=== PATIENT | female | born 1935 | race American Indian/Alaskan Native ===

== ENCOUNTER 2016-11-16 16:51 | Observation (INO) | payer MEDICARE ==
[2016-11-16 18:33] LABS: HEMATOCRIT 38.6 % (34.0-47.0); MEAN CELL VOLUME 91.2 fL (81.0-99.0); MEAN CORPUSCULAR HEMOGLOBIN 29.9 pg (27.0-31.0); MEAN CORPUSCULAR HGB CONC 32.8 g/dL (33.0-37.0); MEAN PLATELET VOLUME 7.7 fL (7.2-11.7); RED CELL DISTRIBUTION WIDTH 13.4 % (11.5-14.5); WHITE BLOOD COUNT 9.2 K/uL (4.8-10.8)
[2016-11-16 18:42] LABS: CHLORIDE 96 mmol/L (98-107); SODIUM 137 mmol/L (132-148)
[2016-11-16 18:44] LABS: GFR AFRICAN-AMERICAN > 60
[2016-11-16 18:45] LABS: ALB/GLOB RATIO 1.3 (1.0-2.1); ALKALINE PHOSPHATASE 84 U/L (38-126); ALT/SGPT 17 U/L (9-52); AST/SGOT 26 U/L (14-36); BILIRUBIN,TOTAL 0.8 mg/dL (0.2-1.3); BLOOD UREA NITROGEN 13 mg/dL (7-17); CARBON DIOXIDE 30 mmol/L (22-30); GLUCOSE,RANDOM 116 mg/dL (65-105); TOTAL PROTEIN 6.5 g/dL (6.3-8.3)
--- NOTE | 2016-11-16 18:52 | C.PDOC ---
History Of Present Illness 80 y/o female, history of HTN, hyperlipidemia, arthritis, presents to ED with c/ o chest pressure that started this morning. Patient saw PMD today, who noticed increased leg swelling. Patient c/o some difficulty breathing. Patient currently lives in a [facility] and states she cannot lie flat "because of her asthma", noting that she uses 2 pillows when she sleeps. Patient reports radiation of pain to bilateral shoulders. Chest pressure described as dull. Denies headaches, dizziness, acute chest pain, palpitations, cough, SOB, abdominal pain, nausea, vomiting, constipation, hematuria. Patient notes leg swelling causes discomfort when walking. Last BM Monday. Time Seen by Provider: 11/16/16 18:12 Chief Complaint (Nursing): Chest Pain History Per: Patient History/Exam Limitations: no limitations Onset/Duration Of Symptoms: Hrs Current Symptoms Are (Timing): Still Present Associated Symptoms: denies: Nausea, Dyspnea, Diaphoresis Exacerbating Factors: Exertion Recent travel outside of the [place]: No Past Medical History Reviewed: Historical Data, Nursing Documentation, Vital Signs Vital Signs: Last Vital Signs Temp 98.8 F 11/16/16 17:28 Pulse 68 11/16/16 17:28 Resp 20 11/16/16 17:51 BP 126/62 11/16/16 17:28 Pulse Ox 96 11/16/16 18:56 - Medical History PMH: Arthritis, Asthma, Back Problems, HTN, Hypercholesterolemia, Peripheral Edema - [facility] Procedures CLOSED ENDOSCOPIC BIOPSY OF LARGE INTESTINE (10/17/13) ENDOSC POLYPECTOMY OF LG INTEST (12/20/12) ESOPHAGOGASTRODUODENOSCOPY [EGD] W/CLOSED BIOPSY (10/17/13) PHYSICAL THERAPY NEC (05/04/15) Family History: States: Unknown Family Hx - Social History Hx Tobacco Use: No Hx Alcohol Use: No Hx Substance Use: No - Immunization History Hx Tetanus Toxoid Vaccination: No Hx Influenza Vaccination: No Hx Pneumococcal Vaccination: No Review Of Systems Except As Marked, All Systems Reviewed And Found Negative. Constitutional: Negative for: Fever, Chills Cardiovascular: Positive for: Edema (bilateral lower extremities), Other (chest pressure) Respiratory: Negative for: Cough, Shortness of Breath, Wheezing Gastrointestinal: Negative for: Nausea, Vomiting Genitourinary: Negative for: Dysuria, Hematuria Skin: Negative for: Rash Neurological: Negative for: Headache, Dizziness Physical Exam - Physical Exam Appears: Non-toxic, No Acute Distress Skin: Warm, Dry Head: Atraumatic, Normacephalic Chest: Symmetrical Cardiovascular: Rhythm Regular Respiratory: Rales, No Rhonchi, Wheezing (mild with prolonged expiration) Gastrointestinal/Abdominal: Soft, No Tenderness, No Guarding, No Rebound Back: Normal Inspection Extremity: Normal ROM, Pedal Edema (+1 pitting edema bilateral lower extremities ), Capillary Refill (< 2 sec. ) Neurological/Psych: Oriented x3, Normal Speech, Normal Cognition ED Course And Treatment - Laboratory Results Result Diagrams: 11/16/16 18:30 11/16/16 18:30 Lab Interpretation: No Acute Changes ECG: Interpreted By Me ECG Rhythm: Sinus Rhythm (with right axis, Q waves V2-3) ECG Interpretation: Abnormal O2 Sat by Pulse Oximetry: 96 Pulse Ox Interpretation: Normal - Radiology CXR: Interpreted by Me CXR Interpretation: Yes: No Acute Disease Progress Note: EKG, CxR, bloodwork ordered. Reevaluation Time: 20:41 Reassessment Condition: Unchanged (but patient going to the bathroom frequently after taking Lasix 20mg po at home earlier.) - Physician Consult Information Time Consulting Physician Contacted: 20:42 Physician Contacted: Rita Vera Outcome Of Conversation: He knows the patient well and will admit for chest pain and peripheral edema. Disposition - Disposition Disposition: HOSPITALIZED Disposition Time: 20:43 Condition: STABLE - POA Present On Arrival: None - Clinical Impression Clinical Impression: Chest pain, Peripheral edema - Scribe Statement The provider has reviewed the documentation as recorded by the Anirudh Riley Provider Scribe Attestation: All medical record entries made by the Sharonibemily were at my direction and personally dictated by me. I have reviewed the chart and agree that the record accurately reflects my personal performance of the history, physical exam, medical decision making, and the department course for this patient. I have also personally directed, reviewed, and agree with the discharge instructions and disposition.
[2016-11-16] MEDS ORDERED: OXYCODONE HCL 15 MG PO PRN (21:33)
[2016-11-16] MEDS ORDERED: oxyCODONE 5 mg Immediate Release Tab PO PRN (21:48)
[2016-11-16] MEDS ORDERED: Home Med 1 UNIT (Simvastatin [Simvastatin] 10 MG) PO SCH (22:00)
[2016-11-16] MEDS ORDERED: Rosuvastatin Calcium 2.5 mg Tab PO SCH (22:00)
[2016-11-16] MEDS: Rosuvastatin Calcium 2.5 mg Tab PO SCH (22:51)
--- NOTE | 2016-11-17 09:25 | CP.PCM.PN ---
Subjective - Date & Time of Evaluation Date of Evaluation: 11/17/16 Time of Evaluation: 07:10 - Subjective Subjective: Medicine Note- Dr. Vera's service Patient was seen and examined at bedside. Patient reports she was in sent in by her PMD, Dr. Vera, because she was complaining of chest pressure and increased leg swelling. She says the leg swelling occurs intermittently and has been on going for several months. She says the chest pressure started in October, she associates it with the time her windows in the senior citizen home she lives in were replaced. She noticed she has been needing her asthma machine more recently due to wheezing. She says she currently doesn't have chest pain at the moment, no complaints. Objective - Vital Signs/Intake and Output Vital Signs (last 24 hours): Temp Pulse Resp BP Pulse Ox 98.6 F 71 20 139/73 95 11/17/16 08:50 11/17/16 08:50 11/17/16 08:50 11/17/16 08:50 11/17/16 08:50 Intake and Output: 11/17/16 11/17/16 06:59 18:59 Intake Total 240 Balance 240 - Medications Medications: Current Medications Amlodipine Besylate (Norvasc) 10 mg PO DAILY [facility] Aspirin (Ecotrin) 81 mg PO DAILY [facility] Clopidogrel Bisulfate (Plavix) 75 mg PO DAILY [facility] Enoxaparin Sodium (Lovenox) 40 mg SC DAILY [facility] Gabapentin (Neurontin) 300 mg PO TID [facility] Losartan Potassium (Cozaar) 100 mg PO DAILY [facility] Oxycodone HCl (Oxycodone Immediate Release Tab) 15 mg PO Q6 PRN PRN Reason: Pain, severe (8-10) Last Admin: 11/16/16 21:00 Dose: 15 mg Pantoprazole Sodium (Protonix Ec Tab) 40 mg PO DAILY [facility] Prednisone (Prednisone Tab) 5 mg PO DAILY [facility] Rosuvastatin Calcium (Crestor) 2.5 mg PO HS [facility] Last Admin: 11/16/16 22:51 Dose: 2.5 mg - Constitutional Appears: Non-toxic, No Acute Distress - Head Exam Head Exam: ATRAUMATIC, NORMAL INSPECTION, NORMOCEPHALIC - Eye Exam Pupil Exam: NORMAL ACCOMODATION, PERRL - ENT Exam ENT Exam: Mucous Membranes Moist - Respiratory Exam Respiratory Exam: Clear to Ausculation Bilateral, NORMAL BREATHING PATTERN. absent: Rales, Rhonchi, Wheezes - Cardiovascular Exam Cardiovascular Exam: REGULAR RHYTHM, +S1, +S2 - GI/Abdominal Exam GI & Abdominal Exam: Soft, Tenderness, Normal Bowel Sounds. absent: Diminished Bowel Sounds, Hernia, Hyperactive Bowel Sounds, Hypoactive Bowel Sounds - Extremities Exam Extremities Exam: Normal Capillary Refill, Normal Inspection - Neurological Exam Neurological Exam: Alert, Awake, Oriented x3 - Psychiatric Exam Psychiatric exam: Normal Affect, Normal Mood - Skin Skin Exam: Dry, Intact, Normal Color, Warm Assessment and Plan - Assessment and Plan (Free Text) Assessment: Chest pain Consult Cardio- Dr. 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
[2016-11-17] MEDS: Enoxaparin 40 mg Syringe SC SCH (09:39)
[2016-11-17] MEDS ORDERED: Pantoprazole 40 mg EC Tab PO SCH (10:00)
--- NOTE | 2016-11-17 11:20 | RAD ---
HISTORY: short of breath COMPARISON: Chest x-ray image performed 07/13/11 TECHNIQUE: Chest PA and lateral FINDINGS: LUNGS: No focal consolidation. Please note that chest x-ray has limited sensitivity for the detection of pulmonary masses. PLEURA: No significant pleural effusion identified. No definite pneumothorax . CARDIOVASCULAR: Heart size appears within normal limits. Atherosclerotic calcifications of the aorta. OSSEOUS STRUCTURES: Degenerative changes of the spine. VISUALIZED UPPER ABDOMEN: Unremarkable. OTHER FINDINGS: None. IMPRESSION: No focal consolidation, significant pleural effusion, or definite pneumothorax identified.
--- NOTE | 2016-11-17 12:53 | CARD ---
APPROVED REPORT EXAM: Two-dimensional and M-mode echocardiogram with Doppler and color Doppler. Other Information Quality : AverageRhythm : NSR INDICATION Dizziness and Vertigo Chest Pain Syncope peripheral edema RISK FACTORS Hypertension Hyperlipidemia M-Mode DIMENSIONS RVDd1.27 (2.1-3.2cm)Left Atrium (MM)3.81 (2.5-4.0cm) IVSd0.75 (0.7-1.1cm)Aortic Root2.80 (2.2-3.7cm) LVDd4.85 (4.0-5.6cm)Aortic Cusp Exc.1.72 (1.5-2.0cm) PWd1.04 (0.7-1.1cm)FS (%) 49 % LVDs2.47 (2.0-3.8cm)LVEF (%)80 (>50%) Mitral Valve MV E Sbtgoqzi39.5cm/sMV A Lxvvucdg088.6cm/sE/A ratio0.8 TDI E/Lateral E'0.0E/Medial E'0.0 Tricuspid Valve TR Peak Wmrcxryr474xx/sTR Peak Gr.[id number] LEFT VENTRICLE The left ventricle is normal size. There is normal left ventricular wall thickness. The left ventricular function is normal. The left ventricular ejection fraction is within the normal range. There is normal LV segmental wall motion. The left ventricular diastolic function is normal. Transmitral Doppler flow pattern is Grade I-abnormal relaxation pattern. No left ventricle thrombus noted on this study. There is no ventricular septal defect visualized. There is no left ventricular aneurysm. There is no mass noted in the left ventricle. RIGHT VENTRICLE The right ventricle is normal size. There is normal right ventricular wall thickness. The right ventricular systolic function is normal. ATRIA The left atrium size is normal. The right atrium size is normal. AORTIC VALVE The aortic valve is mildly thickened but opens well. No aortic regurgitation is present. There is no aortic valvular stenosis. There is no aortic valvular vegetation. MITRAL VALVE The mitral valve is normal in structure. There is no evidence of mitral valve prolapse. There is no mitral valve stenosis. There is no mitral valve regurgitation noted. TRICUSPID VALVE The tricuspid valve is normal in structure. There is trace to mild tricuspid regurgitation. PULMONIC VALVE The pulmonary valve is normal in structure. There is no pulmonic valvular regurgitation. GREAT VESSELS The aortic root is normal in size. The ascending aorta is normal in size. The pulmonary artery is normal. The IVC is normal in size and collapses >50% with inspiration. PERICARDIAL EFFUSION There is no pericardial effusion. <Conclusion> The left ventricular diastolic function is normal. Transmitral Doppler flow pattern is Grade I-abnormal relaxation pattern. There is trace to mild tricuspid regurgitation.
--- NOTE | 2016-11-17 12:57 | CARD ---
APPROVED REPORT EKG Measurement Heart [id number] TX 144P-10 [id number] <Conclusion> Normal sinus rhythm Rightward axis Possible Anterior infarct, age undetermined Abnormal ECG
[2016-11-17] MEDS: Albuterol HFA 90 mcg/actuation (8 g) INH PRN ×2 (16:45→19:15)
--- NOTE | 2016-11-17 18:38 | CP.PCM.CON ---
History of Present Illness - History of Present Illness History of Present Illness: Patient seen and evaluated Admitted with Chest pain and dyspnea with pedal edema Trops negative For stress test in am NPO after MN except meds Past Patient History - Infectious Disease Hx of Infectious Diseases: None - Past Medical History & Family History Past Medical History?: Yes - Past Social History Smoking Status: Never Smoked - CARDIAC Hx Cardiac Disorders: Yes Hx Hypercholesterolemia: Yes Hx Hypertension: Yes - PULMONARY Hx Respiratory Disorders: Yes Hx Asthma: Yes - NEUROLOGICAL Hx Neurological Disorder: No - HEENT Hx HEENT Problems: No - RENAL Hx Chronic Kidney Disease: No - ENDOCRINE/METABOLIC Hx Endocrine Disorders: No - HEMATOLOGICAL/ONCOLOGICAL Hx Blood Disorders: No - INTEGUMENTARY Hx Dermatological Problems: No - MUSCULOSKELETAL/RHEUMATOLOGICAL Hx Arthritis: Yes - GASTROINTESTINAL Hx Gastrointestinal Disorders: No - GENITOURINARY/GYNECOLOGICAL Hx Genitourinary Disorders: No - PSYCHIATRIC Hx Substance Use: No - SURGICAL HISTORY Hx Surgeries: Yes Hx Hysterectomy: Yes Hx Orthopedic Surgery: Yes (CERVICAL NECK) Other/Comment: HYSERECTOMY - ANESTHESIA Hx Anesthesia: Yes Hx Anesthesia Reactions: No Hx Malignant Hyperthermia: No Meds Allergies/Adverse Reactions: Allergies Allergy/AdvReac Type Severity Reaction Status Date / Time aspirin [From Jose Aspirin] Allergy Verified 11/16/16 17:37 - Medications Medications: Current Medications Albuterol (Ventolin Hfa 90 Mcg/Actuation (8 G)) 1 puff INH RQ4 PRN PRN Reason: Shortness of Breath Last Admin: 11/17/16 16:45 Dose: 1 puff Amlodipine Besylate (Norvasc) 10 mg PO DAILY [facility] Last Admin: 11/17/16 09:41 Dose: 10 mg Aspirin (Ecotrin) 81 mg PO DAILY [facility] Last Admin: 11/17/16 09:40 Dose: 81 mg Clopidogrel Bisulfate (Plavix) 75 mg PO DAILY [facility] Last Admin: 11/17/16 09:40 Dose: 75 mg Enoxaparin Sodium (Lovenox) 40 mg SC DAILY [facility] Last Admin: 11/17/16 09:39 Dose: 40 mg Famotidine (Pepcid) 20 mg PO DAILY [facility] Last Admin: 11/17/16 11:27 Dose: 20 mg Gabapentin (Neurontin) 300 mg PO TID [facility] Last Admin: 11/17/16 13:53 Dose: 300 mg Losartan Potassium (Cozaar) 100 mg PO DAILY [facility] Last Admin: 04/13/17 09:41 Dose: 100 mg Oxycodone HCl (Oxycodone Immediate Release Tab) 15 mg PO Q6 PRN PRN Reason: Pain, severe (8-10) Last Admin: 11/16/16 21:00 Dose: 15 mg Prednisone (Prednisone Tab) 5 mg PO DAILY [facility] Last Admin: 11/17/16 09:40 Dose: 5 mg Rosuvastatin Calcium (Crestor) 2.5 mg PO HS [facility] Last Admin: 11/16/16 22:51 Dose: 2.5 mg Results - Vital Signs Recent Vital Signs: Last Vital Signs Temp 98.4 F 11/17/16 15:51 Pulse 60 11/17/16 17:00 Resp 20 11/17/16 15:51 BP 129/74 11/17/16 15:51 Pulse Ox 99 11/17/16 15:51 - Labs Result Diagrams: 11/16/16 18:30 11/16/16 18:30 Labs: Laboratory Results - last 24 hr 11/17/16 11/17/16 02:50 11:56 Total Creatine Kinase 139 H 147 H CK-MB (Mass) 0.97 1.31 Troponin I, Quant < 0.0120 < 0.0120
[2016-11-17] MEDS: Rosuvastatin Calcium 2.5 mg Tab PO SCH (22:14)
[2016-11-18 06:27] LABS: BASO % 0.6 % (0.0-2.0); EOS # 0.1 K/uL (0.0-0.7); EOS % 1.3 % (0.0-4.0); HEMATOCRIT 36.5 % (34.0-47.0); LYMPH # 1.9 K/uL (1.0-4.3); LYMPH % 26.5 % (20.0-40.0); MEAN CELL VOLUME 91.9 fL (81.0-99.0); MEAN CORPUSCULAR HEMOGLOBIN 30.5 pg (27.0-31.0); MEAN CORPUSCULAR HGB CONC 33.2 g/dL (33.0-37.0); MEAN PLATELET VOLUME 8.1 fL (7.2-11.7); MONO # 0.8 K/uL (0.0-0.8); MONO % 10.9 % (0.0-10.0); NRBC % 0.1 % (0.0-2.0); RED CELL DISTRIBUTION WIDTH 13.2 % (11.5-14.5); WHITE BLOOD COUNT 7.2 K/uL (4.8-10.8)
[2016-11-18 07:24] LABS: CHLORIDE 99 mmol/L (98-107); SODIUM 140 mmol/L (132-148)
[2016-11-18 07:25] LABS: POTASSIUM 4.4 mmol/L (3.6-5.2)
[2016-11-18 07:27] LABS: ALB/GLOB RATIO 1.3 (1.0-2.1); ALKALINE PHOSPHATASE 68 U/L (38-126); AST/SGOT 25 U/L (14-36); BILIRUBIN,TOTAL 0.9 mg/dL (0.2-1.3); BLOOD UREA NITROGEN 14 mg/dL (7-17); CARBON DIOXIDE 31 mmol/L (22-30); GFR AFRICAN-AMERICAN > 60
[2016-11-18 07:28] LABS: ALT/SGPT 18 U/L (9-52); CALCIUM 8.7 mg/dl (8.6-10.4); GLUCOSE,RANDOM 129 mg/dL (65-105)
[2016-11-18] MEDS: Enoxaparin 40 mg Syringe SC SCH (09:56)
[2016-11-18] MEDS: Albuterol HFA 90 mcg/actuation (8 g) INH PRN (10:29)
--- NOTE | 2016-11-18 10:54 | CP.PCM.PN ---
Subjective - Date & Time of Evaluation Date of Evaluation: 11/18/16 Time of Evaluation: 08:00 - Subjective Subjective: Medicine Progress Note- Dr. Vera's Service: Patient seen and examined at bedside this AM. Patient NPO for cath today. No acute events overnight reported overnight. Objective - Vital Signs/Intake and Output Vital Signs (last 24 hours): Temp Pulse Resp BP Pulse Ox 98.1 F 70 18 142/86 99 11/18/16 07:00 11/18/16 07:20 11/18/16 07:00 11/18/16 07:00 11/18/16 07:00 - Medications Medications: Current Medications Albuterol (Ventolin Hfa 90 Mcg/Actuation (8 G)) 1 puff INH RQ4 PRN PRN Reason: Shortness of Breath Last Admin: 11/18/16 10:29 Dose: 1 puff Amlodipine Besylate (Norvasc) 10 mg PO DAILY [facility] Last Admin: 11/18/16 09:56 Dose: 10 mg Aspirin (Ecotrin) 81 mg PO DAILY [facility] Last Admin: 11/18/16 09:56 Dose: 81 mg Clopidogrel Bisulfate (Plavix) 75 mg PO DAILY [facility] Last Admin: 11/18/16 09:56 Dose: 75 mg Enoxaparin Sodium (Lovenox) 40 mg SC DAILY [facility] Last Admin: 11/18/16 09:56 Dose: 40 mg Famotidine (Pepcid) 20 mg PO DAILY [facility] Last Admin: 11/18/16 09:55 Dose: 20 mg Gabapentin (Neurontin) 300 mg PO TID [facility] Last Admin: 11/18/16 09:56 Dose: 300 mg Losartan Potassium (Cozaar) 100 mg PO DAILY [facility] Last Admin: 11/18/16 09:55 Dose: 100 mg Oxycodone HCl (Oxycodone Immediate Release Tab) 15 mg PO Q6 PRN PRN Reason: Pain, severe (8-10) Last Admin: 11/16/16 21:00 Dose: 15 mg Prednisone (Prednisone Tab) 5 mg PO DAILY [facility] Last Admin: 11/18/16 09:56 Dose: 5 mg Rosuvastatin Calcium (Crestor) 2.5 mg PO HS [facility] Last Admin: 11/17/16 22:14 Dose: 2.5 mg - Labs Labs: 11/18/16 06:14 11/18/16 06:14 - Constitutional Appears: No Acute Distress - Head Exam Head Exam: NORMAL INSPECTION, NORMOCEPHALIC - Eye Exam Eye Exam: EOMI, Normal appearance - ENT Exam ENT Exam: Mucous Membranes Moist - Neck Exam Neck Exam: Full ROM, Normal Inspection - Respiratory Exam Respiratory Exam: Clear to Ausculation Bilateral, NORMAL BREATHING PATTERN - Cardiovascular Exam Cardiovascular Exam: REGULAR RHYTHM, +S1, +S2 - GI/Abdominal Exam GI & Abdominal Exam: Soft. absent: Distended, Tenderness - Extremities Exam Extremities Exam: Calf Tenderness, Pedal Edema - Neurological Exam Neurological Exam: Alert, Awake, Oriented x3 - Psychiatric Exam Psychiatric exam: Normal Affect, Normal Mood - Skin Skin Exam: Normal Color, Warm Assessment and Plan - Assessment and Plan (Free Text) Assessment: Chest pain Consult Cardio- Dr. 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 Prophylactic Measure Lovenox 40mg SC Daily Pepcid 20mg PO BID Management as per Dr. Vera.
--- NOTE | 2016-11-18 12:20 | VASCLAB ---
PROCEDURE: Lower Extremity Venous Duplex Exam. HISTORY: increased swelling DVT suspected PRIORS: None. TECHNIQUE: Bilateral common femoral, femoral, popliteal and posterior tibial, peroneal and great saphenous veins were evaluated. Flow was assessed with color Doppler, compressibility, assessment of phasic flow and augmentation response. Report prepared by Xavier Porter, T FINDINGS: RIGHT: 1. Common Femoral Vein: 1.1. Compressibility - Fully compressible: Thrombus - None : Flow - Phasic: Augmentation -Normal: Reflux - None. 2. Femoral Vein: 2.1. Compressibility - Fully compressible: Thrombus - None : Flow - Phasic: Augmentation -Normal: Reflux - None. 3. Popliteal Vein: 3.1. Compressibility - Fully compressible: Thrombus - None : Flow - Phasic: Augmentation -Normal: Reflux - None. 4. Posterior Tibial Vein: 4.1. Compressibility - Fully compressible: Thrombus - None: Flow - Phasic: Augmentation -Normal: Reflux - None. 5. Peroneal Vein: 5.1. Compressibility - Fully compressible: Thrombus - None: Flow - Phasic: Augmentation -Normal: Reflux - None. 6. Great Saphenous Vein: 6.1. Compressibility - Fully compressible: Thrombus - None: Flow - Phasic: Augmentation - Normal: Reflux - None. LEFT: 1. Common Femoral Vein: 1.1. Compressibility - Fully compressible: Thrombus - None: Flow - Phasic: Augmentation -Normal: Reflux - None. 2. Femoral Vein: 2.1. Compressibility - Fully compressible: Thrombus - None: Flow - Phasic: Augmentation -Normal: Reflux - None. 3. Popliteal Vein: 3.1. Compressibility - Fully compressible: Thrombus - None : Flow - Phasic: Augmentation -Normal: Reflux - None. 4. Posterior Tibial Vein: 4.1. Compressibility - Fully compressible: Thrombus - None: Flow - Phasic: Augmentation -Normal: Reflux - None. 5. Peroneal Vein: 5.1. Compressibility - Fully compressible: Thrombus - None: Flow - Phasic: Augmentation -Normal: Reflux - None. 6. Great Saphenous Vein: 6.1. Compressibility - Fully compressible: Thrombus - None: Flow - Phasic: Augmentation - Normal: Reflux - None. OTHER FINDINGS: Right: None significant. Left: None significant. IMPRESSION: Right: No evidence of deep or superficial vein thrombosis of the right lower extremity. Left: No evidence of deep or superficial vein thrombosis of the left lower extremity.
[2016-11-18 15:52] VITALS: RESP 20
--- NOTE | 2016-11-18 17:16 | CARD ---
APPROVED REPORT Protocol: PHARMACOLOGICAL STRESS Test Type: LEXISCASN Test Indications: CHEST PAIN Medications: LIST SCAN Medical History: CHEST PAIN Target HR: 141 bpm Resting ECG: PRWP Resting Heart Rate: 62 bpm Resting Blood Pressure: 120/70mmHg submaximum (85%): 120 bpm TEST SUMMARY [id number]/70.0. INFUSIONDOSE 100:310.00.01.063/.0. [id number]/60.0. PROCEDURE Pharmacologic stress testing was performed using 0.4mg per 5ml of regadenoson given intravenously over 7-10 seconds. POST EXERCISE Reason for Termination: LEXISCAN PROTOCOL Target HR: No Max HR: 63 bpm 58% of Maximum Predicted HR: 141 bpm Exercise duration: 00:31 min:sec, 0 Stage Exercise capacity: 1.0METs Max Blood Pressure: 130/60mmHg Chest Pain: No, none Angina index: 0 Arrhythmia: No, none ST Change: No, none Deviation: 0 mm INTERPRETATION Stress EKG Conclusion: NL LEXISCAN NUCLEAR PENDING EXAM: Myocardial Perfusion STRESS/REST Imaging Protocol Rest Spect myocardial perfusion imaging was performed in supine position 45 minutes following the injection of 32.9 mCi of Tc-99 Myoview. Gated Stress Spect was performed 45 minutes after intravenous 12.8 mCi Tc-99 Myoview injection. The images were gated to evaluate regional wall motion and calculate ventricular ejection fraction.Images were reconstructed using backfilter projection method in short horizontal and verticle long axis. Spect slices were generated. RESTING DATA EDV60.74pvMF1.40L/min ESV19.00mlMyocardial Waiq459.00g Av. Heart Rate57.00bpm EF68.00% STRESS DATA EDV65.53wuRA4.10L/min ESV15.00mlMyocardial Jlnb392.00g EF77.00% Regional WT score at stress:0.00 Regional WM score at stress:0.00 Summed WT score at stress:1.00 Av. Heart Rate62.00bpmSummed WM score at stress:0.00 LV Perf. Quant 17 Seg. SSS1.00 17 Seg. SRS0.00 17 Seg. SDS1.00 Stress Defect Extent (% LAD)0.00Rest Defect Extent (% LAD)0.00Rev. Defect Extent (% LAD)0.00 Stress Defect Extent (% LCX)8.80Rest Defect Extent (% LCX)0.00Rev. Defect Extent (% LCX)8.80 Stress Defect Extent (% RCA)0.00Rest Defect Extent (% RCA)0.00Rev. Defect Extent (% RCA)0.00 Stress Defect Extent (% KRYSTAL)1.50Rest Defect Extent (% KRYSTAL)0.00Rev. Defect Extent (% KRYSTAL)1.50 Other Information Quality:Good IMPRESSION Normal Myocardial Perfusion exercise stress study Left Ventricle LV Size/Shape: The left ventricle is normal size. LV Function:Left ventricle systolic function is normal. The Ejection Fraction is 60-65%. Conclusion 1. Normal Lexiscan nuclear stress test
--- NOTE | 2016-11-18 17:46 | CP.PCM.PN ---
Subjective - Date & Time of Evaluation Date of Evaluation: 11/18/16 Time of Evaluation: 17:45 - Subjective Subjective: Patient s/p stress test Stress test: Normal Cardiac point of view stable for discharge Objective - Vital Signs/Intake and Output Vital Signs (last 24 hours): Temp Pulse Resp BP Pulse Ox 98.0 F 66 20 128/68 99 11/18/16 15:51 11/18/16 15:51 11/18/16 15:51 11/18/16 15:51 11/18/16 15:51 - Medications Medications: Current Medications Albuterol (Ventolin Hfa 90 Mcg/Actuation (8 G)) 1 puff INH RQ4 PRN PRN Reason: Shortness of Breath Last Admin: 11/18/16 10:29 Dose: 1 puff Amlodipine Besylate (Norvasc) 10 mg PO DAILY [facility] Last Admin: 11/18/16 09:56 Dose: 10 mg Aspirin (Ecotrin) 81 mg PO DAILY [facility] Last Admin: 11/18/16 09:56 Dose: 81 mg Clopidogrel Bisulfate (Plavix) 75 mg PO DAILY [facility] Last Admin: 11/18/16 09:56 Dose: 75 mg Enoxaparin Sodium (Lovenox) 40 mg SC DAILY [facility] Last Admin: 11/18/16 09:56 Dose: 40 mg Famotidine (Pepcid) 20 mg PO DAILY [facility] Last Admin: 11/18/16 09:55 Dose: 20 mg Gabapentin (Neurontin) 300 mg PO TID [facility] Last Admin: 11/18/16 13:26 Dose: 300 mg Losartan Potassium (Cozaar) 100 mg PO DAILY [facility] Last Admin: 11/18/16 09:55 Dose: 100 mg Oxycodone HCl (Oxycodone Immediate Release Tab) 15 mg PO Q6 PRN PRN Reason: Pain, severe (8-10) Last Admin: 11/16/16 21:00 Dose: 15 mg Prednisone (Prednisone Tab) 5 mg PO DAILY [facility] Last Admin: 11/18/16 09:56 Dose: 5 mg Rosuvastatin Calcium (Crestor) 2.5 mg PO HS [facility] Last Admin: 11/17/16 22:14 Dose: 2.5 mg - Labs Labs: 11/18/16 06:14 11/18/16 06:14
[2016-11-18] MEDS: Albuterol-Ipratrop 3 mg / 0.5 (3 ml) UD INH SCH (20:06)
[2016-11-18] MEDS: Rosuvastatin Calcium 2.5 mg Tab PO SCH (21:48)
[2016-11-19] MEDS: Albuterol-Ipratrop 3 mg / 0.5 (3 ml) UD INH SCH ×2 (01:38→07:53)
[2016-11-19 07:07] LABS: CHLORIDE 98 mmol/L (98-107)
[2016-11-19 07:08] LABS: POTASSIUM 3.7 mmol/L (3.6-5.2); SODIUM 136 mmol/L (132-148)
[2016-11-19 07:10] LABS: AST/SGOT 23 U/L (14-36); BILIRUBIN,TOTAL 0.7 mg/dL (0.2-1.3); BLOOD UREA NITROGEN 15 mg/dL (7-17); CARBON DIOXIDE 31 mmol/L (22-30); GFR AFRICAN-AMERICAN > 60; TOTAL PROTEIN 5.9 g/dL (6.3-8.3)
[2016-11-19 07:11] LABS: ALKALINE PHOSPHATASE 75 U/L (38-126); ALT/SGPT 21 U/L (9-52); CALCIUM 8.6 mg/dl (8.6-10.4); GLUCOSE,RANDOM 109 mg/dL (65-105)
[2016-11-19 07:14] LABS: BASO # 0.1 K/uL (0.0-0.2); BASO % 0.6 % (0.0-2.0); EOS # 0.1 K/uL (0.0-0.7); EOS % 1.3 % (0.0-4.0); HEMATOCRIT 36.8 % (34.0-47.0); LYMPH # 2.2 K/uL (1.0-4.3); LYMPH % 22.6 % (20.0-40.0); MEAN CELL VOLUME 92.4 fL (81.0-99.0); MEAN CORPUSCULAR HEMOGLOBIN 30.8 pg (27.0-31.0); MEAN CORPUSCULAR HGB CONC 33.3 g/dL (33.0-37.0); MEAN PLATELET VOLUME 8.3 fL (7.2-11.7); MONO # 0.9 K/uL (0.0-0.8); RED CELL DISTRIBUTION WIDTH 13.1 % (11.5-14.5); WHITE BLOOD COUNT 9.6 K/uL (4.8-10.8)
[2016-11-19 07:19] LABS: ALB/GLOB RATIO 1.4 (1.0-2.1)
[2016-11-19 08:35] VITALS: BP 154/71; PULSE 67; TEMP 98; O2SAT 96
[2016-11-19] MEDS: Enoxaparin 40 mg Syringe SC SCH (10:14)
--- NOTE | 2016-11-19 11:15 | CP.PCM.PN ---
Subjective - Date & Time of Evaluation Date of Evaluation: 11/19/16 Time of Evaluation: 11:14 - Subjective Subjective: Alert, orientedx3, NAD. Objective - Vital Signs/Intake and Output Vital Signs (last 24 hours): Temp Pulse Resp BP Pulse Ox 98.0 F 67 20 154/71 H 96 11/19/16 08:31 11/19/16 08:31 11/19/16 08:31 11/19/16 08:31 11/19/16 08:31 Intake and Output: 11/19/16 11/19/16 06:59 18:59 Intake Total 150 Balance 150 - Medications Medications: Current Medications Albuterol (Ventolin Hfa 90 Mcg/Actuation (8 G)) 1 puff INH RQ4 PRN PRN Reason: Shortness of Breath Last Admin: 11/18/16 10:29 Dose: 1 puff Albuterol/Ipratropium (Duoneb 3 Mg/0.5 Mg (3 Ml) Ud) 3 ml INH RQ6 [facility] Last Admin: 11/19/16 07:53 Dose: 3 ml Amlodipine Besylate (Norvasc) 10 mg PO DAILY [facility] Last Admin: 11/19/16 10:14 Dose: 10 mg Aspirin (Ecotrin) 81 mg PO DAILY [facility] Last Admin: 11/19/16 10:13 Dose: 81 mg Clopidogrel Bisulfate (Plavix) 75 mg PO DAILY [facility] Last Admin: 11/19/16 10:14 Dose: 75 mg Enoxaparin Sodium (Lovenox) 40 mg SC DAILY [facility] Last Admin: 11/19/16 10:14 Dose: 40 mg Famotidine (Pepcid) 20 mg PO DAILY [facility] Last Admin: 11/19/16 10:14 Dose: 20 mg Gabapentin (Neurontin) 300 mg PO TID [facility] Last Admin: 11/19/16 10:14 Dose: 300 mg Lactulose (Enulose) 20 gm PO DAILY [facility] Last Admin: 11/19/16 10:13 Dose: Not Given Losartan Potassium (Cozaar) 100 mg PO DAILY [facility] Last Admin: 11/19/16 10:13 Dose: 100 mg Oxycodone HCl (Oxycodone Immediate Release Tab) 15 mg PO Q6 PRN PRN Reason: Pain, severe (8-10) Last Admin: 11/16/16 21:00 Dose: 15 mg Prednisone (Prednisone Tab) 5 mg PO DAILY [facility] Last Admin: 11/19/16 10:14 Dose: 5 mg Rosuvastatin Calcium (Crestor) 2.5 mg PO HS [facility] Last Admin: 11/18/16 21:48 Dose: 2.5 mg - Labs Labs: 11/19/16 06:28 11/19/16 06:28 Assessment and Plan - Assessment and Plan (Free Text) Assessment: Patient is seen and examined. No sob or chest pains, no acute distress. Discharged home today as per DR Vera. To follow up in the office in 1 week.
--- NOTE | 2016-11-21 07:15 | DS ---
A 80-year-old female admitted to the hospital with chief complaint of weakness, fatigue, tiredness, c hest pain. The patient placed on bedrest. Stress test negative. Echocardiogram negative. The dinah ent is being discharged to be followed as outpatient. The patient is being discharged today, feeling better . Rita Reeves MD cc: [id number] TT: 11/20/2016 10:13:24 en
--- NOTE | 2016-12-26 08:45 | HP ---
The patient came to the hospital with chief complaint of abdominal pain, weakness, leg pain, dizzines s, passing out spell. The patient came to the hospital, advised admission. The patient has history of spinal stenosis/spinal surgery, hypertension. PHYSICAL EXAMINATION: GENERAL: The patient is awake, alert, oriented. VITAL SIGNS: Temperature 98, pulse 90. HEENT: Within normal limits. NECK: Supple. CHEST: Symmetrical, decreased air entry. HEART: Regular. ABDOMEN: ____. EXTREMITIES: No edema. The patient with syncope. The patient will get bedrest, supportive care. Rita Reeves MD cc: [id number] TT: 12/24/2016 08:26:27 tn
== END 2016-11-19 12:21 | disposition home or self-care (01) ==
LOC: C.ER 16:51 → C.9E 20:43 → C.6T 22:52
PROVIDERS: ADMIT Internal Medicine Pulmonary Disease; ATTEND Internal Medicine Pulmonary Disease
DX: R07.9 Chest pain, unspecified (principal); E78.00 Pure hypercholesterolemia, unspecified; I10 Essential (primary) hypertension; J45.909 Unspecified asthma, uncomplicated; G89.29 Other chronic pain; M54.2 Cervicalgia; M19.072 Primary osteoarthritis, left ankle and foot; M19.071 Primary osteoarthritis, right ankle and foot; M79.89 Other specified soft tissue disorders
CPT/HCPCS: 36415; 71020; 78452; 80053; 84484; 85025; 85027; 93005; 93017; 93306; 93970; 94640; 97116; 97162; 99285; A9502; G0378; G8978; G8979; G8980; J1650

== ENCOUNTER 2016-11-20 14:52 | Observation (INO) | payer MEDICARE ==
[2016-11-20 15:37] LABS: BASO # 0.1 K/uL (0.0-0.2); BASO % 0.6 % (0.0-2.0); EOS # 0.1 K/uL (0.0-0.7); HEMATOCRIT 36.2 % (34.0-47.0); LYMPH # 2.6 K/uL (1.0-4.3); LYMPH % 25.3 % (20.0-40.0); MEAN CELL VOLUME 93.1 fL (81.0-99.0); MEAN CORPUSCULAR HEMOGLOBIN 30.1 pg (27.0-31.0); MEAN CORPUSCULAR HGB CONC 32.3 g/dL (33.0-37.0); MONO # 1.2 K/uL (0.0-0.8); MONO % 11.6 % (0.0-10.0); RED CELL DISTRIBUTION WIDTH 13.3 % (11.5-14.5); WHITE BLOOD COUNT 10.2 K/uL (4.8-10.8)
[2016-11-20 15:41] LABS: CHLORIDE 99 mmol/L (98-107)
[2016-11-20 15:42] LABS: POTASSIUM 4.3 mmol/L (3.6-5.2); SODIUM 137 mmol/L (132-148)
[2016-11-20 15:44] LABS: ALB/GLOB RATIO 1.4 (1.0-2.1); AST/SGOT 23 U/L (14-36); BILIRUBIN,TOTAL 0.5 mg/dL (0.2-1.3); CARBON DIOXIDE 31 mmol/L (22-30); GFR AFRICAN-AMERICAN 58; TOTAL PROTEIN 5.9 g/dL (6.3-8.3)
[2016-11-20 15:45] LABS: ALKALINE PHOSPHATASE 76 U/L (38-126); ALT/SGPT 17 U/L (9-52); BLOOD UREA NITROGEN 20 mg/dL (7-17); GLUCOSE,RANDOM 93 mg/dL (65-105)
--- NOTE | 2016-11-20 16:28 | C.PDOC ---
History Of Present Illness Patient is a 80 y/o female that is brought to the ED by EMS for evaluation of syncopal episode at [facility] today. Patient states that she was standing outside of [facility], when she suddenly felt nauseous, sat down, and became unconscious. Of note, patient was recently admitted for edema, and was discharged home few days ago. Patient denies any injury, headache, dizziness, lightheadedness, chest pain, shortness of breath, or any other physical complaints at this time. Pt denies any history of syncope in the past. Time Seen by Provider: 11/20/16 14:59 Chief Complaint (Nursing): Syncope History Per: Patient History/Exam Limitations: no limitations Onset/Duration Of Symptoms: Sudden Onset Current Symptoms Are (Timing): Still Present Activity At Onset Of Symptoms: Standing Associated Symptoms Preceding Syncopal Episode: No Predromal Symptoms (Sudden Onset) Seizure Or Post-ictal Symptoms: None Fall Associated With With Symptoms: No Severity: None Pain Scale Rating Of: 0 Recent travel outside of the [place]: No Additional History Per: Patient Past Medical History Reviewed: Historical Data, Nursing Documentation, Vital Signs Vital Signs: Last Vital Signs Temp 98.0 F 11/22/16 08:52 Pulse 62 11/22/16 08:52 Resp 18 11/22/16 08:52 BP 156/78 H 11/22/16 08:52 Pulse Ox 100 11/22/16 08:52 - Medical History PMH: Arthritis, Asthma, Back Problems, HTN, Hypercholesterolemia, Peripheral Edema Denies: Chronic Kidney Disease - [facility] Procedures CLOSED ENDOSCOPIC BIOPSY OF LARGE INTESTINE (10/17/13) ENDOSC POLYPECTOMY OF LG INTEST (12/20/12) ESOPHAGOGASTRODUODENOSCOPY [EGD] W/CLOSED BIOPSY (10/17/13) PHYSICAL THERAPY NEC (05/04/15) Family History: States: Unknown Family Hx - Social History Hx Tobacco Use: No Hx Alcohol Use: No Hx Substance Use: No - Immunization History Hx Tetanus Toxoid Vaccination: No Hx Influenza Vaccination: No Hx Pneumococcal Vaccination: No Review Of Systems Except As Marked, All Systems Reviewed And Found Negative. Constitutional: Negative for: Fever, Chills Cardiovascular: Negative for: Chest Pain, Palpitations Respiratory: Negative for: Cough, Shortness of Breath Gastrointestinal: Negative for: Nausea, Vomiting, Abdominal Pain Neurological: Negative for: Weakness, Numbness, Headache, Dizziness Physical Exam - Physical Exam Appears: Non-toxic, No Acute Distress Skin: Normal Color, Warm, Dry Head: Atraumatic, Normacephalic Eye(s): bilateral: Normal Inspection, EOMI Neck: Normal ROM, Supple Chest: Symmetrical Cardiovascular: Rhythm Regular Respiratory: Normal Breath Sounds, No Rales, No Rhonchi, No Wheezing Gastrointestinal/Abdominal: Soft, No Tenderness Neurological/Psych: Oriented x3, Normal Speech, Normal Cognition ED Course And Treatment - Laboratory Results Result Diagrams: 11/22/16 06:11 11/22/16 06:11 ECG: Interpreted By Me, Viewed By Me ECG Rhythm: Sinus Rhythm ECG Interpretation: No Acute Changes Interpretation Of ECG: Minimal voltage criteria for LVH Rate From EC (bpm) O2 Sat by Pulse Oximetry: 100 (on RA) Pulse Ox Interpretation: Normal Progress Note: Labs, EKG ordered and reviewed. Medical Decision Making Medical Decision Making: Pt remained stable in the ED Bun/Creat elevated from 2 days ago IN view of hx CHF, and fluid over load last wk will need observation for elier hydration Discussed with dr Vera who agrees with plan Disposition - Disposition Disposition: HOME/ ROUTINE Disposition Time: 16:27 Condition: GOOD - Clinical Impression Clinical Impression: Syncope - Scribe Statement The provider has reviewed the documentation as recorded by the Anirudh Castro Provider Attestation: All medical record entries made by the Anirudh were at my direction and personally dictated by me. I have reviewed the chart and agree that the record accurately reflects my personal performance of the history, physical exam, medical decision making, and the department course for this patient. I have also personally directed, reviewed, and agree with the discharge instructions and disposition. Decision To Admit - Pt Status Changed To: Hospital Disposition Of: Observation - . Bed Request Type: Telemetry Admitting Physician: Rita Vera Patient Diagnosis: Syncope
[2016-11-20] MEDS ORDERED: Oxycodone/Acetaminophen 5/325 mg Tab PO STA (17:06)
[2016-11-20] MEDS ORDERED: Albuterol 0.083% Inhal Sol (2.5 mg/3 mL) UD INH STA (17:07)
[2016-11-20] MEDS ORDERED: Oxycodone/Acetaminophen 5/325 mg Tab ONE (17:10)
[2016-11-20] MEDS ORDERED: Albuterol 0.083% Inhal Sol (2.5 mg/3 mL) UD ONE (17:10)
[2016-11-20] MEDS ORDERED: Albuterol HFA 90 mcg/actuation (8 g) INH PRN (19:24)
[2016-11-20] MEDS ORDERED: OXYCODONE HCL 15 MG PO PRN (19:24)
[2016-11-20] MEDS: Dextrose 5%/0.45% NS 1,000 ML IV SCH (21:44)
[2016-11-20] MEDS ORDERED: Home Med 1 UNIT (Simvastatin [Simvastatin] 10 MG) PO SCH (22:00)
[2016-11-20] MEDS ORDERED: oxyCODONE 10 mg Immediate Release Tab PO PRN (22:09)
[2016-11-20] MEDS: Rosuvastatin Calcium 2.5 mg Tab PO SCH (22:45)
[2016-11-21] MEDS ORDERED: Albuterol-Ipratrop 3 mg / 0.5 (3 ml) UD INH STA (05:39)
[2016-11-21] MEDS ORDERED: Albuterol 0.083% Inhal Sol (2.5 mg/3 mL) UD ONE (05:41)
[2016-11-21 06:29] LABS: BASO % 0.6 % (0.0-2.0); EOS # 0.1 K/uL (0.0-0.7); EOS % 1.2 % (0.0-4.0); HEMATOCRIT 35.9 % (34.0-47.0); LYMPH # 2.6 K/uL (1.0-4.3); LYMPH % 33.1 % (20.0-40.0); MEAN CELL VOLUME 93.2 fL (81.0-99.0); MEAN CORPUSCULAR HEMOGLOBIN 30.3 pg (27.0-31.0); MEAN CORPUSCULAR HGB CONC 32.5 g/dL (33.0-37.0); MONO # 0.8 K/uL (0.0-0.8); MONO % 10.3 % (0.0-10.0); NRBC % 0.1 % (0.0-2.0); RED CELL DISTRIBUTION WIDTH 13.5 % (11.5-14.5); WHITE BLOOD COUNT 7.8 K/uL (4.8-10.8)
[2016-11-21 06:34] LABS: CHLORIDE 100 mmol/L (98-107); POTASSIUM 3.9 mmol/L (3.6-5.2); SODIUM 138 mmol/L (132-148)
[2016-11-21 06:36] LABS: ALKALINE PHOSPHATASE 67 U/L (38-126); AST/SGOT 20 U/L (14-36); CARBON DIOXIDE 30 mmol/L (22-30); GFR AFRICAN-AMERICAN > 60; TOTAL PROTEIN 5.6 g/dL (6.3-8.3)
[2016-11-21 06:37] LABS: ALT/SGPT 17 U/L (9-52); BLOOD UREA NITROGEN 15 mg/dL (7-17); CALCIUM 7.7 mg/dl (8.6-10.4); GLUCOSE,RANDOM 120 mg/dL (65-105)
[2016-11-21 06:48] LABS: ALB/GLOB RATIO 1.4 (1.0-2.1)
[2016-11-21] MEDS: Dextrose 5%/0.45% NS 1,000 ML IV SCH ×2 (08:13→20:45)
[2016-11-21] MEDS ORDERED: Bisacodyl 5mg EC Tab PO ONE (09:31)
[2016-11-21] MEDS ORDERED: oxyCODONE 5 mg Immediate Release Tab PO PRN (09:33)
--- NOTE | 2016-11-21 09:43 | CP.PCM.PN ---
Subjective - Date & Time of Evaluation Date of Evaluation: 11/21/16 Time of Evaluation: 08:05 - Subjective Subjective: Medicine Note- Dr. Vera's service Patient was seen and examined at bedside. She says she was admitted because she had passed out. She said she had finished with [facility] and had been standing for some time, but when she went outside, she felt a bit nauseous, and decided to sit on the [employer] steps, then passed out, for about a min. Patient reports that she feels a bit constipated, requests medication. Otherwise no acute complaints. No events overnight. Objective - Vital Signs/Intake and Output Vital Signs (last 24 hours): Temp Pulse Resp BP Pulse Ox 98.2 F 67 18 169/81 H 98 11/21/16 07:30 11/21/16 07:30 11/21/16 07:30 11/21/16 07:30 11/21/16 07:30 - Medications Medications: Current Medications Albuterol (Ventolin Hfa 90 Mcg/Actuation (8 G)) 1 puff INH RQ4 PRN PRN Reason: Shortness of Breath Amlodipine Besylate (Norvasc) 10 mg PO DAILY [facility] Last Admin: 11/21/16 09:23 Dose: 10 mg Aspirin (Ecotrin) 81 mg PO DAILY [facility] Last Admin: 11/21/16 09:22 Dose: 81 mg Gabapentin (Neurontin) 300 mg PO TID [facility] Last Admin: 11/21/16 09:22 Dose: 300 mg Dextrose/Sodium Chloride (Dextrose 5%/0.45% Ns 1000 Ml) 1,000 mls @ 80 mls/hr IV .[id number] [facility] Last Admin: 11/21/16 08:13 Dose: 80 mls/hr Losartan Potassium (Cozaar) 100 mg PO DAILY [facility] Last Admin: 11/21/16 09:21 Dose: 100 mg Oxycodone HCl (Oxycodone Immediate Release Tab) 15 mg PO Q6 PRN PRN Reason: Pain, moderate (4-7) Prednisone (Prednisone Tab) 5 mg PO DAILY [facility] Last Admin: 11/21/16 09:23 Dose: 5 mg Rosuvastatin Calcium (Crestor) 2.5 mg PO HS [facility] Last Admin: 11/20/16 22:45 Dose: 2.5 mg - Labs Labs: 11/21/16 06:11 11/21/16 06:11 - Constitutional Appears: Non-toxic, No Acute Distress - Head Exam Head Exam: ATRAUMATIC, NORMAL INSPECTION, NORMOCEPHALIC - Eye Exam Pupil Exam: NORMAL ACCOMODATION, PERRL - ENT Exam ENT Exam: Mucous Membranes Moist - Respiratory Exam Respiratory Exam: Clear to Ausculation Bilateral, NORMAL BREATHING PATTERN. absent: Prolonged Expiratory Phase, Rales, Rhonchi, Wheezes - Cardiovascular Exam Cardiovascular Exam: REGULAR RHYTHM, +S1, +S2 - GI/Abdominal Exam GI & Abdominal Exam: Soft, Normal Bowel Sounds. absent: Tenderness, Diminished Bowel Sounds, Hypoactive Bowel Sounds - Neurological Exam Neurological Exam: Alert, Awake, Oriented x3 - Psychiatric Exam Psychiatric exam: Normal Affect, Normal Mood - Skin Skin Exam: Dry, Intact, Normal Color, Warm Assessment and Plan - Assessment and Plan (Free Text) Assessment: Syncopal Episode Echo from 11/17/16- Normal systolic function. Normal diastolic function. Grade I - abnormal relaxation pattern. trace-mild tricuspid regurgitation. EKG 11/20/16- NSR @ 60bpm, Left axis deviation, Minimal oltage criteria for LVH Consult cardio- Dr. 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 Vera.
[2016-11-21] MEDS: Enoxaparin 40 mg Syringe SC SCH (13:09)
--- NOTE | 2016-11-21 18:17 | CP.PCM.CON ---
<Grady Sena - Last Filed: 11/21/16 18:10> History of Present Illness - History of Present Illness History of Present Illness: Cardiology Consultation Note Dr. Levy CC: Syncope HPI: This is a 80 year olf female with PMH notable for HTN and asthma presenting for cardiac evaluation of syncope. The patient was admitted on due to syncopal episode. Patient was at [facility] and had been standing for some time. When the patient went outside, she stated she felt nauseous and sat down on the [facility] steps where she lost consciousness for about 1 minute. The patient notes that this is not the first syncopal episode that she has experienced. They have happened at least 2-3 other times in the past. The patient notes that her 2nd most recent syncopal episode happened 2 years ago. Patient has been hospitalized at least twice in the past for syncope but does not remember the details. Before the patient experiences syncopal episodes, she gets a "sick" feeling in the epigastric region. Of note, the patient notes that she was recently started on a "water pill" 2 weeks ago. The patient denies chest pain, shortness of breath, palpitations, and visual/auditory hallucinations prior to the syncopal episodes. The patient was sent for tilt table examination this afternoon. The patient was found to have a mixed vasovagal and orthostatic origin of her syncope. The patient was examined prior to the tilt table test and denies all cardiopulmonary complaints. The patient had an echo on 11/17/16 that revealed trace-mild tricuspid regurgitation and a Grade 1 abnormal relaxation pattern with an EF of 80%. PMH: HTN, DM, chronic neck and back pain PSH: Cyst removal, cervical fusion, polypectomy in large intestine Allergies: ASA Family Hx: Denies Social: Denies smoking, alcohol, drugs. Review of Systems - Review of Systems All systems: reviewed and no additional remarkable complaints except - EENT Eyes: absent: Blind Spots, Blurred Vision Ears: absent: Decreased Hearing, Tinnitus Nose/Mouth/Throat: absent: Facial Pain, Neck Pain - Cardiovascular Cardiovascular: Diaphoresis, Lightheadedness, Syncope. absent: Chest Pain, Orthopnea, Pedal Edema - Respiratory Respiratory: absent: Cough, Dyspnea, Dyspnea on Exertion - Gastrointestinal Gastrointestinal: Abdominal Pain. absent: Constipation, Diarrhea, Nausea, Vomiting - Genitourinary Genitourinary: absent: Change in Urinary Stream - Musculoskeletal Musculoskeletal: absent: Stiffness, Tingling - Integumentary Integumentary: absent: Lesions, Rash, Wounds - Neurological Neurological: Dizziness, Syncope. absent: Frequent Falls, Headaches, Memory Loss, Sensory Deficit, Tremor, Weakness - Endocrine Endocrine: absent: Cold Intolorance, Heat Intolorance Past Patient History - Infectious Disease Hx of Infectious Diseases: None - Past Medical History & Family History Past Medical History?: Yes - Past Social History Smoking Status: Former Smoker - CARDIAC Hx Hypercholesterolemia: Yes Hx Hypertension: Yes - PULMONARY Hx Respiratory Disorders: Yes Hx Asthma: Yes - NEUROLOGICAL Hx Neurological Disorder: No - HEENT Hx HEENT Problems: No Other/Comment: Wears eyglasses for distance - RENAL Hx Chronic Kidney Disease: No - ENDOCRINE/METABOLIC Hx Endocrine Disorders: No - HEMATOLOGICAL/ONCOLOGICAL Hx Blood Disorders: No - INTEGUMENTARY Hx Dermatological Problems: No - MUSCULOSKELETAL/RHEUMATOLOGICAL Hx Arthritis: Yes - GASTROINTESTINAL Hx Gastrointestinal Disorders: Yes Hx Constipation: Yes Other/Comment: "I have to take a pill to make me go,I did not go for 2 weeks now ,actually. I went but only small amounts,I have been telling the doctor the last time. I was here but I still have the same problem" - GENITOURINARY/GYNECOLOGICAL Hx Genitourinary Disorders: No Other/Comment: "I go a lot because of the Lasix" - PSYCHIATRIC Hx Substance Use: No - SURGICAL HISTORY Hx Surgeries: Yes Hx Hysterectomy: Yes Hx Orthopedic Surgery: Yes (CERVICAL NECK) Other/Comment: "After the surgery on my neck I have this tingling and numbness on my. hands,both hands" - ANESTHESIA Hx Anesthesia: Yes Hx Anesthesia Reactions: No Hx Malignant Hyperthermia: No Has any member of the family had a problem w/ anesthesia?: No Meds Allergies/Adverse Reactions: Allergies Allergy/AdvReac Type Severity Reaction Status Date / Time aspirin [From [employer] Aspirin] Allergy Verified 11/16/16 17:37 - Medications Medications: Current Medications Albuterol (Ventolin Hfa 90 Mcg/Actuation (8 G)) 1 puff INH RQ4 PRN PRN Reason: Shortness of Breath Amlodipine Besylate (Norvasc) 10 mg PO DAILY [facility] Last Admin: 11/21/16 09:23 Dose: 10 mg Aspirin (Ecotrin) 81 mg PO DAILY [facility] Last Admin: 11/21/16 09:22 Dose: 81 mg Enoxaparin Sodium (Lovenox) 40 mg SC DAILY [facility] Last Admin: 11/21/16 13:09 Dose: 40 mg Gabapentin (Neurontin) 300 mg PO TID [facility] Last Admin: 11/21/16 17:21 Dose: 300 mg Dextrose/Sodium Chloride (Dextrose 5%/0.45% Ns 1000 Ml) 1,000 mls @ 80 mls/hr IV .[id number] [facility] Last Admin: 11/21/16 08:13 Dose: 80 mls/hr Losartan Potassium (Cozaar) 100 mg PO DAILY [facility] Last Admin: 11/21/16 09:21 Dose: 100 mg Oxycodone HCl (Oxycodone Immediate Release Tab) 15 mg PO Q6 PRN PRN Reason: Pain, moderate (4-7) Prednisone (Prednisone Tab) 5 mg PO DAILY [facility] Last Admin: 11/21/16 09:23 Dose: 5 mg Rosuvastatin Calcium (Crestor) 2.5 mg PO HS [facility] Last Admin: 11/20/16 22:45 Dose: 2.5 mg Physical Exam - Constitutional Appears: Well, No Acute Distress - Head Exam Head Exam: ATRAUMATIC, NORMAL INSPECTION, NORMOCEPHALIC - Eye Exam Eye Exam: EOMI, Normal appearance Pupil Exam: NORMAL ACCOMODATION - ENT Exam ENT Exam: Mucous Membranes Moist - Respiratory Exam Respiratory Exam: Clear to Auscultation Bilateral, NORMAL BREATHING PATTERN. absent: Rhonchi, Wheezes - Cardiovascular Exam Cardiovascular Exam: REGULAR RHYTHM, RRR, +S1, +S2. absent: Diastolic murmur, Systolic Murmur - GI/Abdominal Exam GI & Abdominal Exam: Normal Bowel Sounds, Soft. absent: Distended, Firm, Guarding, Tenderness - Extremities Exam Extremities exam: Positive for: normal capillary refill, normal inspection, pedal pulses present. Negative for: calf tenderness, pedal edema, tenderness - Neurological Exam Neurological exam: Alert, CN II-XII Intact, Oriented x3 - Skin Skin Exam: Dry, Intact, Normal Color, Warm Results - Vital Signs Recent Vital Signs: Last Vital Signs Temp 98.6 F 11/21/16 16:00 Pulse 66 11/21/16 16:00 Resp 20 11/21/16 16:00 BP 127/65 11/21/16 16:00 Pulse Ox 99 11/21/16 16:00 - Labs Result Diagrams: 11/21/16 06:11 11/21/16 06:11 Labs: Laboratory Results - last 24 hr 11/20/16 11/21/16 23:40 06:11 WBC 7.8 RBC 3.86 Hgb 11.7 Hct 35.9 MCV 93.2 MCH 30.3 MCHC 32.5 L RDW 13.5 Plt Count 201 MPV 8.0 Neut % (Auto) 54.8 Lymph % (Auto) 33.1 Craig % (Auto) 10.3 H Eos % (Auto) 1.2 Baso % (Auto) 0.6 Neut # 4.3 Lymph # 2.6 Craig # 0.8 Eos # 0.1 Baso # 0.0 Sodium 138 Potassium 3.9 Chloride 100 Carbon Dioxide 30 Anion Gap 12 BUN 15 Creatinine 0.7 Est GFR ( Amer) > 60 Est GFR (Non-Af Amer) > 60 Random Glucose 120 H Calcium 7.7 L Total Bilirubin 1.0 AST 20 ALT 17 Alkaline Phosphatase 67 Total Creatine Kinase 131 130 CK-MB (Mass) 0.92 1.18 Troponin I, Quant < 0.0120 < 0.0120 Total Protein 5.6 L Albumin 3.3 L Globulin 2.3 Albumin/Globulin Ratio 1.4 Assessment & Plan (1) Syncope Assessment and Plan: Tilt table examination- reveals mixed orthostatic and vasovagal origin of syncope AVOID lasix and peripheral vasodilatory medications will initiate lopressor 12.5mg po ONCE daily Norvasc will be DC continue aspirin 81mg po daily continue cozaar 100mg po daily 11/20/16 EKG- normal sinus rhythm, normal intervals, left lelia deviation, Q waves in V2, voltage criteria for LVH 11/17/16 Echo- LV EF 80%, no diastolic dysfunction, grade I abnormal relaxation pattern Case Discussed with Dr. Mildred Sena PGY1 Status: Acute (2) Vasovagal syncope Status: Acute (3) Orthostatic syncope Status: Acute - Date & Time Date: 11/21/16 Time: 18:20 <Chery Levy - Last Filed: 11/21/16 19:38> Meds - Medications Medications: Current Medications Albuterol (Ventolin Hfa 90 Mcg/Actuation (8 G)) 1 puff INH RQ4 PRN PRN Reason: Shortness of Breath Aspirin (Ecotrin) 81 mg PO DAILY [facility] Last Admin: 11/21/16 09:22 Dose: 81 mg Enoxaparin Sodium (Lovenox) 40 mg SC DAILY [facility] Last Admin: 11/21/16 13:09 Dose: 40 mg Gabapentin (Neurontin) 300 mg PO TID [facility] Last Admin: 11/21/16 17:21 Dose: 300 mg Dextrose/Sodium Chloride (Dextrose 5%/0.45% Ns 1000 Ml) 1,000 mls @ 80 mls/hr IV .[id number] [facility] Last Admin: 11/21/16 08:13 Dose: 80 mls/hr Losartan Potassium (Cozaar) 100 mg PO DAILY [facility] Last Admin: 11/21/16 09:21 Dose: 100 mg Metoprolol Tartrate (Lopressor) 12.5 mg PO DAILY [facility] Oxycodone HCl (Oxycodone Immediate Release Tab) 15 mg PO Q6 PRN PRN Reason: Pain, moderate (4-7) Prednisone (Prednisone Tab) 5 mg PO DAILY [facility] Last Admin: 11/21/16 09:23 Dose: 5 mg Rosuvastatin Calcium (Crestor) 2.5 mg PO HS [facility] Last Admin: 11/20/16 22:45 Dose: 2.5 mg Results - Vital Signs Recent Vital Signs: Last Vital Signs Temp 98.6 F 11/21/16 16:00 Pulse 66 11/21/16 16:00 Resp 20 11/21/16 16:00 BP 127/65 11/21/16 16:00 Pulse Ox 99 11/21/16 16:00 - Labs Result Diagrams: 11/21/16 06:11 11/21/16 06:11 Labs: Laboratory Results - last 24 hr 11/20/16 11/21/16 23:40 06:11 WBC 7.8 RBC 3.86 Hgb 11.7 Hct 35.9 MCV 93.2 MCH 30.3 MCHC 32.5 L RDW 13.5 Plt Count 201 MPV 8.0 Neut % (Auto) 54.8 Lymph % (Auto) 33.1 Craig % (Auto) 10.3 H Eos % (Auto) 1.2 Baso % (Auto) 0.6 Neut # 4.3 Lymph # 2.6 Craig # 0.8 Eos # 0.1 Baso # 0.0 Sodium 138 Potassium 3.9 Chloride 100 Carbon Dioxide 30 Anion Gap 12 BUN 15 Creatinine 0.7 Est GFR ( Amer) > 60 Est GFR (Non-Af Amer) > 60 Random Glucose 120 H Calcium 7.7 L Total Bilirubin 1.0 AST 20 ALT 17 Alkaline Phosphatase 67 Total Creatine Kinase 131 130 CK-MB (Mass) 0.92 1.18 Troponin I, Quant < 0.0120 < 0.0120 Total Protein 5.6 L Albumin 3.3 L Globulin 2.3 Albumin/Globulin Ratio 1.4 Attending/Attestation - Attestation I have personally seen and examined this patient.: Yes I have fully participated in the care of the patient.: Yes I have reviewed all pertinent clinical information: Yes Notes (Text): 11/21/16 19:38 tilt today encourage fluids avoid diuretics
[2016-11-21] MEDS: Rosuvastatin Calcium 2.5 mg Tab PO SCH (21:35)
--- NOTE | 2016-11-21 22:30 | CP.PCM.CON ---
History of Present Illness - History of Present Illness History of Present Illness: Patient s/p Tilt table test Dr. Levy EP consult appreciated Likely etiology basing on patient history Vasovagal Tilt test also abnormal B Zahira therapy Cut down Lasix dose Compression stockings Physical Examination - Additional Findings Additional findings: - Constitutional Appears: Well, No Acute Distress - Head Exam Head Exam: ATRAUMATIC, NORMAL INSPECTION, NORMOCEPHALIC - Eye Exam Eye Exam: EOMI, Normal appearance Pupil Exam: NORMAL ACCOMODATION - ENT Exam ENT Exam: Mucous Membranes Moist - Respiratory Exam Respiratory Exam: Clear to Auscultation Bilateral, NORMAL BREATHING PATTERN. absent: Rhonchi, Wheezes - Cardiovascular Exam Cardiovascular Exam: REGULAR RHYTHM, RRR, +S1, +S2. absent: Diastolic murmur, Systolic Murmur - GI/Abdominal Exam GI & Abdominal Exam: Normal Bowel Sounds, Soft. absent: Distended, Firm, Guarding, Tenderness - Extremities Exam Extremities exam: Positive for: normal capillary refill, normal inspection, pedal pulses present. Negative for: calf tenderness, pedal edema, tenderness - Neurological Exam Neurological exam: Alert, CN II-XII Intact, Oriented x3 - Skin Skin Exam: Dry, Intact, Normal Color, Warm Past Patient History - Infectious Disease Hx of Infectious Diseases: None - Past Medical History & Family History Past Medical History?: Yes - Past Social History Smoking Status: Former Smoker - CARDIAC Hx Hypercholesterolemia: Yes Hx Hypertension: Yes - PULMONARY Hx Respiratory Disorders: Yes Hx Asthma: Yes - NEUROLOGICAL Hx Neurological Disorder: No - HEENT Hx HEENT Problems: No Other/Comment: Wears eyglasses for distance - RENAL Hx Chronic Kidney Disease: No - ENDOCRINE/METABOLIC Hx Endocrine Disorders: No - HEMATOLOGICAL/ONCOLOGICAL Hx Blood Disorders: No - INTEGUMENTARY Hx Dermatological Problems: No - MUSCULOSKELETAL/RHEUMATOLOGICAL Hx Arthritis: Yes - GASTROINTESTINAL Hx Gastrointestinal Disorders: Yes Hx Constipation: Yes Other/Comment: "I have to take a pill to make me go,I did not go for 2 weeks now ,actually. I went but only small amounts,I have been telling the doctor the last time. I was here but I still have the same problem" - GENITOURINARY/GYNECOLOGICAL Hx Genitourinary Disorders: No Other/Comment: "I go a lot because of the Lasix" - PSYCHIATRIC Hx Substance Use: No - SURGICAL HISTORY Hx Surgeries: Yes Hx Hysterectomy: Yes Hx Orthopedic Surgery: Yes (CERVICAL NECK) Other/Comment: "After the surgery on my neck I have this tingling and numbness on my. hands,both hands" - ANESTHESIA Hx Anesthesia: Yes Hx Anesthesia Reactions: No Hx Malignant Hyperthermia: No Has any member of the family had a problem w/ anesthesia?: No Meds Home Medications: Home Medication List Medication Instructions Recorded Confirmed Type Metoprolol Tartrate [Lopressor] 12.5 mg PO DAILY #30 tab 11/22/16 Rx Allergies/Adverse Reactions: Allergies Allergy/AdvReac Type Severity Reaction Status Date / Time aspirin [From Jose Aspirin] Allergy Verified 11/16/16 17:37 - Medications Medications: Current Medications Albuterol (Ventolin Hfa 90 Mcg/Actuation (8 G)) 1 puff INH RQ4 PRN PRN Reason: Shortness of Breath Aspirin (Ecotrin) 81 mg PO DAILY [facility] [place] Last Admin: 11/21/16 09:22 Dose: 81 mg Enoxaparin Sodium (Lovenox) 40 mg SC DAILY [facility] [place] Last Admin: 11/21/16 13:09 Dose: 40 mg Gabapentin (Neurontin) 300 mg PO TID [facility] [place] Last Admin: 11/21/16 17:21 Dose: 300 mg Dextrose/Sodium Chloride (Dextrose 5%/0.45% Ns 1000 Ml) 1,000 mls @ 80 mls/hr IV .[id number] [facility] [place] Last Admin: 11/21/16 08:13 Dose: 80 mls/hr Losartan Potassium (Cozaar) 100 mg PO DAILY [facility] [place] Last Admin: 11/21/16 09:21 Dose: 100 mg Metoprolol Tartrate (Lopressor) 12.5 mg PO DAILY [facility] [place] Oxycodone HCl (Oxycodone Immediate Release Tab) 15 mg PO Q6 PRN PRN Reason: Pain, moderate (4-7) Prednisone (Prednisone Tab) 5 mg PO DAILY [facility] [place] Last Admin: 11/21/16 09:23 Dose: 5 mg Rosuvastatin Calcium (Crestor) 2.5 mg PO HS [facility] [place] Last Admin: 11/21/16 21:35 Dose: 2.5 mg Results - Vital Signs Recent Vital Signs: Last Vital Signs Temp 98.6 F 11/21/16 16:00 Pulse 66 11/21/16 16:00 Resp 20 11/21/16 16:00 BP 127/65 11/21/16 16:00 Pulse Ox 99 11/21/16 16:00 - Labs Result Diagrams: 11/22/16 06:11 11/22/16 06:11 Labs: Laboratory Results - last 24 hr 11/20/16 11/21/16 23:40 06:11 WBC 7.8 RBC 3.86 Hgb 11.7 Hct 35.9 MCV 93.2 MCH 30.3 MCHC 32.5 L RDW 13.5 Plt Count 201 MPV 8.0 Neut % (Auto) 54.8 Lymph % (Auto) 33.1 Hyde % (Auto) 10.3 H Eos % (Auto) 1.2 Baso % (Auto) 0.6 Neut # 4.3 Lymph # 2.6 Hyde # 0.8 Eos # 0.1 Baso # 0.0 Sodium 138 Potassium 3.9 Chloride 100 Carbon Dioxide 30 Anion Gap 12 BUN 15 Creatinine 0.7 Est GFR ( Amer) > 60 Est GFR (Non-Af Amer) > 60 Random Glucose 120 H Calcium 7.7 L Total Bilirubin 1.0 AST 20 ALT 17 Alkaline Phosphatase 67 Total Creatine Kinase 131 130 CK-MB (Mass) 0.92 1.18 Troponin I, Quant < 0.0120 < 0.0120 Total Protein 5.6 L Albumin 3.3 L Globulin 2.3 Albumin/Globulin Ratio 1.4 Assessment & Plan - Assessment and Plan (Free Text) Assessment: (1) Syncope Assessment & Plan: continue lopressor 12.5mg PO daily PO fluid intake encouraged patient tolerating therapy well 11/21/16 Tilt table examination- reveals mixed orthostatic and vasovagal origin of syncope AVOID lasix and peripheral vasodilatory medications Norvasc will be DC continue aspirin 81mg po daily continue cozaar 100mg po daily 11/20/16 EKG- normal sinus rhythm, normal intervals, left lelia deviation, Q waves in V2, voltage criteria for LVH 11/17/16 Echo- LV EF 80%, no diastolic dysfunction, grade I abnormal relaxation pattern (2) Vasovagal syncope Status: Acute (3) Orthostatic syncope Status: Acute
[2016-11-22] MEDS: Dextrose 5%/0.45% NS 1,000 ML IV SCH (00:51)
[2016-11-22] MEDS ORDERED: Albuterol-Ipratrop 3 mg / 0.5 (3 ml) UD INH STA (06:12)
[2016-11-22 06:16] LABS: BASO # 0.1 K/uL (0.0-0.2); EOS # 0.1 K/uL (0.0-0.7); EOS % 1.2 % (0.0-4.0); HEMATOCRIT 37.1 % (34.0-47.0); LYMPH # 2.4 K/uL (1.0-4.3); LYMPH % 27.8 % (20.0-40.0); MEAN CELL VOLUME 92.5 fL (81.0-99.0); MEAN CORPUSCULAR HEMOGLOBIN 30.7 pg (27.0-31.0); MEAN CORPUSCULAR HGB CONC 33.2 g/dL (33.0-37.0); MEAN PLATELET VOLUME 7.9 fL (7.2-11.7); MONO # 0.8 K/uL (0.0-0.8); MONO % 9.4 % (0.0-10.0); RED CELL DISTRIBUTION WIDTH 13.2 % (11.5-14.5); WHITE BLOOD COUNT 8.6 K/uL (4.8-10.8)
[2016-11-22] MEDS ORDERED: Albuterol-Ipratrop 3 mg / 0.5 (3 ml) UD INH PRN (06:22)
[2016-11-22] MEDS ORDERED: Magnesium Hydroxide Susp 30 ml UD PO ONE (06:28)
[2016-11-22] MEDS ORDERED: Bisacodyl 5mg EC Tab PO ONE (06:28)
[2016-11-22 06:30] LABS: CHLORIDE 102 mmol/L (98-107); SODIUM 140 mmol/L (132-148)
[2016-11-22 06:31] LABS: POTASSIUM 3.8 mmol/L (3.6-5.2)
[2016-11-22 06:33] LABS: ALB/GLOB RATIO 1.4 (1.0-2.1); ALKALINE PHOSPHATASE 75 U/L (38-126); AST/SGOT 23 U/L (14-36); BILIRUBIN,TOTAL 0.9 mg/dL (0.2-1.3); BLOOD UREA NITROGEN 14 mg/dL (7-17); CARBON DIOXIDE 30 mmol/L (22-30); GFR AFRICAN-AMERICAN > 60; TOTAL PROTEIN 6.2 g/dL (6.3-8.3)
[2016-11-22 06:34] LABS: ALT/SGPT 20 U/L (9-52); CALCIUM 8.3 mg/dl (8.6-10.4); GLUCOSE,RANDOM 120 mg/dL (65-105)
--- NOTE | 2016-11-22 07:55 | CP.PCM.PN ---
<Grady Sena - Last Filed: 11/22/16 13:02> Subjective - Date & Time of Evaluation Date of Evaluation: 11/22/16 Time of Evaluation: 07:55 - Subjective Subjective: Cardiology Progress Note Dr. Levy Patient seen and examined at the bedside. No acute distress. No acute events overnight. Nursing staff reports no issues. The patient is resting comfortably in bed at this time. Patient stats that she feels her condition has improved from yesterday. The patient denies all cardiopulmonary complaints. 12 point review of systems was preformed and the patient denied all complaints at this time. Objective - Vital Signs/Intake and Output Vital Signs (last 24 hours): Temp Pulse Resp BP Pulse Ox 97.9 F 64 20 142/74 98 11/22/16 05:14 11/22/16 05:14 11/22/16 05:14 11/22/16 05:14 11/22/16 05:14 Intake and Output: 11/22/16 11/22/16 06:59 18:59 Intake Total 640 Balance 640 - Medications Medications: Current Medications Albuterol (Ventolin Hfa 90 Mcg/Actuation (8 G)) 1 puff INH RQ4 PRN PRN Reason: Shortness of Breath Albuterol/Ipratropium (Duoneb 3 Mg/0.5 Mg (3 Ml) Ud) 3 ml INH RQ6 PRN PRN Reason: Shortness of Breath Aspirin (Ecotrin) 81 mg PO DAILY [facility] Last Admin: 11/21/16 09:22 Dose: 81 mg Enoxaparin Sodium (Lovenox) 40 mg SC DAILY [facility] Last Admin: 11/21/16 13:09 Dose: 40 mg Gabapentin (Neurontin) 300 mg PO TID [facility] Last Admin: 11/21/16 17:21 Dose: 300 mg Dextrose/Sodium Chloride (Dextrose 5%/0.45% Ns 1000 Ml) 1,000 mls @ 80 mls/hr IV .[id number] [facility] Last Admin: 11/22/16 00:51 Dose: 80 mls/hr Losartan Potassium (Cozaar) 100 mg PO DAILY [facility] Last Admin: 11/21/16 09:21 Dose: 100 mg Metoprolol Tartrate (Lopressor) 12.5 mg PO DAILY [facility] Oxycodone HCl (Oxycodone Immediate Release Tab) 15 mg PO Q6 PRN PRN Reason: Pain, moderate (4-7) Prednisone (Prednisone Tab) 5 mg PO DAILY [facility] Last Admin: 11/21/16 09:23 Dose: 5 mg Rosuvastatin Calcium (Crestor) 2.5 mg PO HS [facility] Last Admin: 11/21/16 21:35 Dose: 2.5 mg - Labs Labs: 11/22/16 06:11 11/22/16 06:11 - Additional Findings Additional findings: - Constitutional Appears: Well, No Acute Distress - Head Exam Head Exam: ATRAUMATIC, NORMAL INSPECTION, NORMOCEPHALIC - Eye Exam Eye Exam: EOMI, Normal appearance Pupil Exam: NORMAL ACCOMODATION - ENT Exam ENT Exam: Mucous Membranes Moist - Respiratory Exam Respiratory Exam: Clear to Auscultation Bilateral, NORMAL BREATHING PATTERN. absent: Rhonchi, Wheezes - Cardiovascular Exam Cardiovascular Exam: REGULAR RHYTHM, RRR, +S1, +S2. absent: Diastolic murmur, Systolic Murmur - GI/Abdominal Exam GI & Abdominal Exam: Normal Bowel Sounds, Soft. absent: Distended, Firm, Guarding, Tenderness - Extremities Exam Extremities exam: Positive for: normal capillary refill, normal inspection, pedal pulses present. Negative for: calf tenderness, pedal edema, tenderness - Neurological Exam Neurological exam: Alert, CN II-XII Intact, Oriented x3 - Skin Skin Exam: Dry, Intact, Normal Color, Warm Assessment and Plan (1) Syncope Assessment & Plan: continue lopressor 12.5mg PO daily PO fluid intake encouraged patient tolerating therapy well 11/21/16 Tilt table examination- reveals mixed orthostatic and vasovagal origin of syncope AVOID lasix and peripheral vasodilatory medications Norvasc will be DC continue aspirin 81mg po daily continue cozaar 100mg po daily 11/20/16 EKG- normal sinus rhythm, normal intervals, left lelia deviation, Q waves in V2, voltage criteria for LVH 11/17/16 Echo- LV EF 80%, no diastolic dysfunction, grade I abnormal relaxation pattern Case Discussed with Dr. Mildred Sena PGY1 Status: Acute (2) Vasovagal syncope Status: Acute (3) Orthostatic syncope Status: Acute <Chery Levy - Last Filed: 11/24/16 09:45> Objective - Vital Signs/Intake and Output Vital Signs (last 24 hours): Temp Pulse Resp BP Pulse Ox 98.4 F 60 18 153/77 H 98 11/22/16 15:54 11/22/16 15:54 11/22/16 15:54 11/22/16 15:54 11/22/16 15:54 - Labs Labs: 11/22/16 06:11 11/22/16 06:11 Attending/Attestation - Attestation I have personally seen and examined this patient.: Yes I have fully participated in the care of the patient.: Yes I have reviewed all pertinent clinical information, including history, physical exam and plan: Yes Notes (Text): 11/24/16 09:45 positive stress test avoid diuretics
--- NOTE | 2016-11-22 07:58 | CARD ---
APPROVED REPORT EKG Measurement Heart [id number] <Conclusion> Normal sinus rhythm Left axis deviation Minimal voltage criteria for LVH, may be normal variant Abnormal ECG
[2016-11-22 08:54] VITALS: RESP 18
--- NOTE | 2016-11-22 09:47 | CP.PCM.PN ---
Subjective - Date & Time of Evaluation Date of Evaluation: 11/22/16 Time of Evaluation: 08:00 - Subjective Subjective: Medicine Note- Dr. Vera's service Patient was seen and examined at bedside. Patient reports no acute complaints. No events overnight. Objective - Vital Signs/Intake and Output Vital Signs (last 24 hours): Temp Pulse Resp BP Pulse Ox 98.0 F 62 18 156/78 H 100 11/22/16 08:52 11/22/16 08:52 11/22/16 08:52 11/22/16 08:52 11/22/16 08:52 Intake and Output: 11/22/16 11/22/16 06:59 18:59 Intake Total 640 Balance 640 - Medications Medications: Current Medications Albuterol (Ventolin Hfa 90 Mcg/Actuation (8 G)) 1 puff INH RQ4 PRN PRN Reason: Shortness of Breath Albuterol/Ipratropium (Duoneb 3 Mg/0.5 Mg (3 Ml) Ud) 3 ml INH RQ6 PRN PRN Reason: Shortness of Breath Aspirin (Ecotrin) 81 mg PO DAILY [facility] Last Admin: 11/21/16 09:22 Dose: 81 mg Enoxaparin Sodium (Lovenox) 40 mg SC DAILY [facility] Last Admin: 11/21/16 13:09 Dose: 40 mg Gabapentin (Neurontin) 300 mg PO TID [facility] Last Admin: 11/21/16 17:21 Dose: 300 mg Dextrose/Sodium Chloride (Dextrose 5%/0.45% Ns 1000 Ml) 1,000 mls @ 80 mls/hr IV .[id number] [facility] Last Admin: 11/22/16 00:51 Dose: 80 mls/hr Losartan Potassium (Cozaar) 100 mg PO DAILY [facility] Last Admin: 11/21/16 09:21 Dose: 100 mg Metoprolol Tartrate (Lopressor) 12.5 mg PO DAILY [facility] Oxycodone HCl (Oxycodone Immediate Release Tab) 15 mg PO Q6 PRN PRN Reason: Pain, moderate (4-7) Prednisone (Prednisone Tab) 5 mg PO DAILY [facility] Last Admin: 11/21/16 09:23 Dose: 5 mg Rosuvastatin Calcium (Crestor) 2.5 mg PO HS [facility] Last Admin: 11/21/16 21:35 Dose: 2.5 mg - Labs Labs: 11/22/16 06:11 11/22/16 06:11 - Constitutional Appears: Non-toxic, No Acute Distress - Head Exam Head Exam: ATRAUMATIC, NORMAL INSPECTION, NORMOCEPHALIC - Eye Exam Pupil Exam: NORMAL ACCOMODATION, PERRL - ENT Exam ENT Exam: Mucous Membranes Moist - Respiratory Exam Respiratory Exam: Clear to Ausculation Bilateral, NORMAL BREATHING PATTERN. absent: Prolonged Expiratory Phase, Rales, Rhonchi, Wheezes - Cardiovascular Exam Cardiovascular Exam: REGULAR RHYTHM, +S1, +S2 - GI/Abdominal Exam GI & Abdominal Exam: Soft, Normal Bowel Sounds. absent: Tenderness, Diminished Bowel Sounds, Hyperactive Bowel Sounds, Hypoactive Bowel Sounds - Extremities Exam Extremities Exam: Normal Capillary Refill, Normal Inspection - Neurological Exam Neurological Exam: Alert, Awake, Oriented x3 - Psychiatric Exam Psychiatric exam: Normal Affect, Normal Mood - Skin Skin Exam: Dry, Intact, Normal Color, Warm Assessment and Plan - Assessment and Plan (Free Text) Assessment: Syncopal Episode Echo from 11/17/16- Normal systolic function. Normal diastolic function. Grade I - abnormal relaxation pattern. trace-mild tricuspid regurgitation. EKG 11/20/16- NSR @ 60bpm, Left axis deviation, Minimal oltage criteria for LVH Consult cardio- Dr. Eubanks Consult cardio- Dr. 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 Vera. Patient is to be discharged home, as per Dr. Vera.
[2016-11-22] MEDS: Enoxaparin 40 mg Syringe SC SCH (09:55)
--- NOTE | 2016-11-22 12:28 | VASCLAB ---
PROCEDURE: HISTORY: Syncope COMPARISON: None available. TECHNIQUE: Grayscale and duplex Doppler evaluation of the cervical carotid and vertebral arteries were performed. The common carotid, carotid bifurcations and cervical Internal Carotid Artery (ICA) and proximal External Carotid Artery (ECA) were evaluated. The vertebral arteries were evaluated for gross patency and flow direction. Report prepared by KIMBERLEY Mejia FINDINGS: RIGHT CAROTID ARTERIES: 1. Common Carotid Artery: Homogeneous plaque formation of the right common carotid artery. Maximum Peak Systolic velocity: 90 cm/sec: End-diastolic velocity 16 cm/sec. 2. Carotid Bifurcation: Homogeneous plaque formation. Maximum Peak Systolic velocity: 64 cm/sec: End-diastolic velocity 9 cm/sec. 3. Internal Carotid Artery: Plaque description: Homogeneous 3.1. Proximal Segment: Peak systolic velocity 53 cm/sec: End-diastolic velocity 14 cm/sec - % stenosis 0-15% 3.2. Middle Segment: Peak systolic velocity 79 cm/sec: End-diastolic velocity 24 cm/sec - % stenosis 0-15% 3.3. Distal Segment: Peak systolic velocity 85 cm/sec: End-diastolic velocity 32 cm/sec - % stenosis 0-15% 4. External Carotid Artery: Homogeneous plaque formation. Peak systolic velocity 54 cm/sec 5. ICA/CCA Ratio: 1.2 LEFT CAROTID ARTERIES: 1. Common Carotid Artery: Homogeneous plaque formation of the left common carotid artery. Maximum Peak Systolic velocity: 92 cm/sec: End-diastolic velocity 15 cm/sec. 2. Carotid Bifurcation: Homogeneous plaque formation. Maximum Peak Systolic velocity: 39 cm/sec: End-diastolic velocity 6 cm/sec. 3. Internal Carotid Artery: Plaque description: Homogeneous 3.1. Proximal Segment: Peak systolic velocity 46 cm/sec: End-diastolic velocity 16 cm/sec - % stenosis 0-15% 3.2. Middle Segment: Peak systolic velocity 79 cm/sec: End-diastolic velocity 17 cm/sec - % stenosis 0-15% 3.3. Distal Segment: Peak systolic velocity 82 cm/sec: End-diastolic velocity 18 cm/sec - % stenosis 0-15% 4. External Carotid Artery: Homogeneous plaque formation. Peak systolic velocity 59 cm/sec 5. ICA/CCA Ratio: 1.4 VERTEBRAL ARTERIES: 1. Right Vertebral Artery: The right vertebral artery flow direction is antegrade. 2. Left Vertebral Artery: The left vertebral artery flow direction is antegrade. OTHER FINDINGS: 1. Right Brachial Blood pressure: 140 mmHg. 2. Left Brachial Blood pressure: 150 mmHg. IMPRESSION: RIGHT: Duplex scan does not suggest hemodynamically significant stenosis of the right extracranial carotid arteries. LEFT: Duplex scan does not suggest hemodynamically significant stenosis of the left extracranial carotid arteries.
[2016-11-22 15:57] VITALS: BP 153/77; PULSE 60; TEMP 98.4; O2SAT 98
--- NOTE | 2016-11-22 20:44 | CP.PCM.PN ---
Subjective - Date & Time of Evaluation Date of Evaluation: 11/22/16 Time of Evaluation: 08:10 - Subjective Subjective: Patient seen and evaluated Denies chest pain and dyspnea Physical Examination - Additional Findings Additional findings: - Constitutional Appears: Well, No Acute Distress - Head Exam Head Exam: ATRAUMATIC, NORMAL INSPECTION, NORMOCEPHALIC - Eye Exam Eye Exam: EOMI, Normal appearance Pupil Exam: NORMAL ACCOMODATION - ENT Exam ENT Exam: Mucous Membranes Moist - Respiratory Exam Respiratory Exam: Clear to Auscultation Bilateral, NORMAL BREATHING PATTERN. absent: Rhonchi, Wheezes - Cardiovascular Exam Cardiovascular Exam: REGULAR RHYTHM, RRR, +S1, +S2. absent: Diastolic murmur, Systolic Murmur - GI/Abdominal Exam GI & Abdominal Exam: Normal Bowel Sounds, Soft. absent: Distended, Firm, Guarding, Tenderness - Extremities Exam Extremities exam: Positive for: normal capillary refill, normal inspection, pedal pulses present. Negative for: calf tenderness, pedal edema, tenderness - Neurological Exam Neurological exam: Alert, CN II-XII Intact, Oriented x3 - Skin Skin Exam: Dry, Intact, Normal Color, Warm Objective - Vital Signs/Intake and Output Vital Signs (last 24 hours): Temp Pulse Resp BP Pulse Ox 98.4 F 60 18 153/77 H 98 11/22/16 15:54 11/22/16 15:54 11/22/16 15:54 11/22/16 15:54 11/22/16 15:54 Intake and Output: 11/22/16 11/23/16 18:59 06:59 Intake Total 400 Balance 400 - Labs Labs: 11/22/16 06:11 11/22/16 06:11 Assessment and Plan - Assessment and Plan (Free Text) Assessment: (1) Syncope Assessment & Plan: continue lopressor 12.5mg PO daily PO fluid intake encouraged patient tolerating therapy well 11/21/16 Tilt table examination- reveals mixed orthostatic and vasovagal origin of syncope AVOID lasix and peripheral vasodilatory medications Norvasc will be DC continue aspirin 81mg po daily continue cozaar 100mg po daily 11/20/16 EKG- normal sinus rhythm, normal intervals, left lelia deviation, Q waves in V2, voltage criteria for LVH 11/17/16 Echo- LV EF 80%, no diastolic dysfunction, grade I abnormal relaxation pattern (2) Vasovagal syncope Status: Acute (3) Orthostatic syncope Status: Acute
--- NOTE | 2016-12-26 08:52 | HP ---
The patient came to the hospital with chief complaint of weakness, fatigue, tiredness. The patient c roslyn to the hospital and advised admission. The patient has history of hypertension, spinal stenosis, recently discharged from the hospital. PHYSICAL EXAMINATION: GENERAL: The patient is awake, alert, oriented. VITAL SIGNS: Temperature 98, pulse 90. HEENT: Within normal limit. NECK: Supple. CHEST: Symmetrical. HEART: Regular. ABDOMEN: Soft. EXTREMITIES: No edema. ASSESSMENT: The patient suffers from near syncope/dehydration. The patient bedrest, supportive care . Rita Reeves MD cc: [id number] TT: 12/24/2016 08:30:00 tn
== END 2016-11-22 18:00 | disposition home or self-care (01) ==
LOC: C.ER 14:52 → C.9E 16:25 → C.6T 21:21
PROVIDERS: ADMIT Internal Medicine Pulmonary Disease; ATTEND Internal Medicine Pulmonary Disease
DX: R55 Syncope and collapse (principal); G89.29 Other chronic pain; E78.00 Pure hypercholesterolemia, unspecified; J45.909 Unspecified asthma, uncomplicated; Z87.891 Personal history of nicotine dependence; E11.9 Type 2 diabetes mellitus without complications; I10 Essential (primary) hypertension; M13.862 Other specified arthritis, left knee; M13.861 Other specified arthritis, right knee
CPT/HCPCS: 36415; 80053; 82948; 84484; 85025; 93005; 93660; 93880; 94640; 97116; 97162; 97530; 99285; G0378; G8978; G8979; J1650; J7042

== ENCOUNTER 2017-04-21 10:24 | Emergency (ER) | payer MEDICARE ==
[2017-04-21 10:36] VITALS: RESP 18
[2017-04-21 11:42] LABS: BASO % 0.7 % (0.0-2.0); EOS # 0.1 K/uL (0.0-0.7); HEMATOCRIT 36.4 % (34.0-47.0); LYMPH # 1.7 K/uL (1.0-4.3); LYMPH % 26.3 % (20.0-40.0); MEAN CELL VOLUME 91.9 fL (81.0-99.0); MEAN CORPUSCULAR HEMOGLOBIN 30.3 pg (27.0-31.0); MEAN PLATELET VOLUME 7.7 fL (7.2-11.7); MONO # 0.8 K/uL (0.0-0.8); MONO % 11.3 % (0.0-10.0); RED CELL DISTRIBUTION WIDTH 13.6 % (11.5-14.5); WHITE BLOOD COUNT 6.7 K/uL (4.8-10.8)
[2017-04-21 11:50] LABS: CHLORIDE 100 mmol/L (98-107)
--- NOTE | 2017-04-21 11:50 | C.PDOC ---
History Of Present Illness 81 year old female with a history of HTN was brought to the ED by EMS with complaints of left sided abdominal and back pain for 4-5 months and dizziness that began today which prompted visit. She also notes occasional shortness of breath. Patient notes her new PMD is Dr. He and is scheduled to have "tests " done but is unsure of what exactly they are. She states she had a sonogram performed but is unaware of the results. Patient's previous doctor was Dr. Vera who prescribed Valium, Oxycodone, and Lasiks. She last took her medication yesterday. Patient denies dysuria, incontinence, fever, chills, or chest pain. Time Seen by Provider: 04/21/17 11:03 Chief Complaint (Nursing): Back Pain History Per: Patient History/Exam Limitations: no limitations Onset/Duration Of Symptoms: Persistent (approximately 4-5 months ) Current Symptoms Are (Timing): Still Present Quality Of Discomfort: "Pain" Associated Symptoms: None Recent travel outside of the [place]: No Past Medical History Reviewed: Historical Data, Nursing Documentation, Vital Signs Vital Signs: Last Vital Signs Temp 98.6 F 04/21/17 10:35 Pulse 57 L 04/21/17 10:35 Resp 18 04/21/17 10:35 BP 117/62 04/21/17 10:35 Pulse Ox 99 04/21/17 14:33 - Medical History PMH: Arthritis, Asthma, Back Problems, HTN, Hypercholesterolemia, Peripheral Edema - [facility] Procedures CLOSED ENDOSCOPIC BIOPSY OF LARGE INTESTINE (10/17/13) ENDOSC POLYPECTOMY OF LG INTEST (12/20/12) ESOPHAGOGASTRODUODENOSCOPY [EGD] W/CLOSED BIOPSY (10/17/13) PHYSICAL THERAPY NEC (05/04/15) Family History: States: Unknown Family Hx - Social History Hx Tobacco Use: No Hx Alcohol Use: No Hx Substance Use: No - Immunization History Hx Tetanus Toxoid Vaccination: No Hx Influenza Vaccination: No Hx Pneumococcal Vaccination: No Review Of Systems Constitutional: Negative for: Fever, Chills Cardiovascular: Negative for: Chest Pain, Palpitations Respiratory: Positive for: Shortness of Breath. Negative for: Cough Gastrointestinal: Positive for: Abdominal Pain (general left sided abdominal pain). Negative for: Nausea, Vomiting Genitourinary: Negative for: Dysuria, Incontinence, Hematuria Musculoskeletal: Positive for: Back Pain (left sided ) Neurological: Positive for: Dizziness Physical Exam - Physical Exam Additional Physical Exam Comments: Constitutional: No acute distress. Head: Normocephalic. Atraumatic. Eyes: PERRL. EOMI ENT: Moist mucous membranes. Neck: Supple. Cardiovascular: Regular rate and rhythm. No murmur. Chest: No tenderness. Respiratory: Clear to auscultation bilaterally. No wheezing, rhonchi, or rales. GI: Soft. Nontender. Nondistended. Normoactive bowel sounds. Back: Lumbar tenderness. No paraspinal tenderness. No CVA tenderness. Musculoskeletal: Pedal edema bilateral. No calf tenderness. Skin: No rash. Neurologic: Alert, no gross focal deficit. ED Course And Treatment - Laboratory Results Result Diagrams: 04/21/17 11:38 04/21/17 11:38 ECG: Interpreted By Me, Viewed By Me ECG Rhythm: Sinus Bradycardia Interpretation Of ECG: Left axis deviation. Rate From EC O2 Sat by Pulse Oximetry: 99 (room air ) - Radiology CXR: Viewed By Me, Read By Radiologist CXR Interpretation: Yes: Other (No active disease. No significant interval change compared to the prior examination(s).) - Other Rad LS spine X-Ray X-Ray: Viewed By Me, Read By Radiologist Interpretation: FINDINGS: BONES: No acute fracture identified. DISC SPACES: Degenerative changes primarily L4-5 and L5-S1. Mild scoliosis. OTHER FINDINGS: Calcified nonaneurysmal abdominal aorta. IMPRESSION: No acute findings related to/accounting for the clinical presentation. Additional benign and/or incidental findings described above Progress Note: EKG, CXR, LS spine X-Ray, UA, and blood work were ordered. Medical Decision Making Medical Decision Making: discussed with pt and anderson. recommend that pt stop tsking muscle relaxant and oxycodone, take tylenol instead, labs and xrays discussed with them , will d/c with pmd follow up , will give copies of labs and xray. recommend outpatient pt. Disposition - Disposition Referrals: Reyna He DO [[facility]] - Disposition: HOME/ ROUTINE Disposition Time: 15:08 Condition: STABLE Additional Instructions: Follow up with Dr He next week. Bring copies of your lab work and xray. Take Tylenol as prescribed for pain. Return to ER for any worse symptoms. Recommend that you stop taking oxycodone nuscle relaxant. 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 - Scribe Statement The provider has reviewed the documentation as recorded by the Scribe Juliana Alexis All medical record entries made by the Sharonibemily were at my direction and personally dictated by me. I have reviewed the chart and agree that the record accurately reflects my personal performance of the history, physical exam, medical decision making, and the department course for this patient. I have also personally directed, reviewed, and agree with the discharge instructions and disposition.
[2017-04-21 11:51] LABS: SODIUM 137 mmol/L (132-148)
[2017-04-21 11:54] LABS: ALB/GLOB RATIO 1.5 (1.0-2.1); ALKALINE PHOSPHATASE 61 U/L (38-126); ALT/SGPT 24 U/L (9-52); AST/SGOT 28 U/L (14-36); BILIRUBIN,TOTAL 0.8 mg/dL (0.2-1.3); BLOOD UREA NITROGEN 12 mg/dL (7-17); CALCIUM 7.7 mg/dl (8.6-10.4); CARBON DIOXIDE 29 mmol/L (22-30); GFR AFRICAN-AMERICAN > 60; GLUCOSE,RANDOM 83 mg/dL (65-105); TOTAL PROTEIN 6.1 g/dL (6.3-8.3)
[2017-04-21 12:21] LABS: RBC URINE 2 /hpf (0-3); URINE BILIRUBIN NEGATIVE (NEGATIVE); URINE BLOOD NEGATIVE (NEGATIVE); URINE COLOR Yellow (YELLOW); URINE GLUCOSE (UA) NORMAL (Normal); URINE KETONE NEGATIVE (NEGATIVE); URINE LEUKOCYTE ESTERASE TRACE Leu/uL (Negative); URINE PROTEIN NEGATIVE (NEGATIVE); URINE UROBILINOGEN NORMAL mg/dL (0.2-1.0); WBC URINE 3 /hpf (0-5)
--- NOTE | 2017-04-21 14:32 | RAD ---
HISTORY: 11/16/2016. COMPARISON: No prior. TECHNIQUE: Chest PA and lateral FINDINGS: LUNGS: No active pulmonary disease. PLEURA: No significant pleural effusion identified. No pneumothorax apparent. CARDIOVASCULAR: No radiographic findings to suggest acute or significant cardiovascular disease. OSSEOUS STRUCTURES: No significant abnormalities. VISUALIZED UPPER ABDOMEN: Normal. OTHER FINDINGS: None. IMPRESSION: No active disease. No significant interval change compared to the prior examination(s).
--- NOTE | 2017-04-21 14:33 | RAD ---
PROCEDURE: Radiographs of the Lumbar Spine. HISTORY: midline pain COMPARISON: No prior. FINDINGS: BONES: No acute fracture identified. DISC SPACES: Degenerative changes primarily L4-5 and L5-S1. Mild scoliosis. OTHER FINDINGS: Calcified nonaneurysmal abdominal aorta. IMPRESSION: No acute findings related to/accounting for the clinical presentation. Additional benign and/or incidental findings described above.
[2017-04-21 15:49] VITALS: BP 145/76; PULSE 82; TEMP 98.5
[2017-04-23 21:19] VITALS: O2SAT 99
== END 2017-04-21 15:20 | disposition home or self-care (01) ==
LOC: C.ER 10:24
DX: M54.5 Low back pain (principal); I10 Essential (primary) hypertension; E78.00 Pure hypercholesterolemia, unspecified; Z87.891 Personal history of nicotine dependence

== ENCOUNTER 2017-05-16 08:15 | Day surgery (SDC) | payer MEDICARE ==
[2017-05-16 08:55] VITALS: BMI 27.8
--- NOTE | 2017-05-16 10:28 | CP.SDSHP ---
Same Day Surgery H & P - History Proposed Procedure: EGD/COLONSCOPY Pre-Op Diagnosis: SEE NOTES - Previous Medical/Surgical History Cardiac: Hypertension Pulmonary: Asthma Neuro: Backaches Misc: Other Pain: 4.Moderate Pain - Allergies Allergies: Allergies No Known Allergies Allergy (Verified 05/16/17 08:54) - Physical Exam General Appearance: N Vital Signs: Vital Signs 05/16/17 08:56 Temperature 97.3 F L Pulse Rate 60 Respiratory 19 Rate Blood Pressure 150/56 L O2 Sat by Pulse 98 Oximetry Mental Status: Alert & Oriented x3 Neuro: WNL Heart: Other Lungs: Other GI: Other - {Optional Preform as Required} Breast: WNL Abdomen: Other Rectal: Other Integument: WNL : WNL Ortho: Other ENT: WNL - Impression Pt. Evaluated Today:Candidate for Anesthesia & Procedure: Yes - Date & Time Time: 10:28 Short Stay Discharge - Short Stay Discharge Admitting Diagnosis/Reason for Visit: DIARRHEA UNSPECIFIED, FUNCTIONAL DYSPEPSIA Disposition: HOME/ ROUTINE
[2017-05-16] MEDS ORDERED: Belladonna-Phenobarbital PO STA (10:29)
[2017-05-16] MEDS ORDERED: Propofol 10 mg/ml Inj (20 ML) ONE (10:30)
[2017-05-16 11:18] VITALS: TEMP 98
[2017-05-16] MEDS ORDERED: Pantoprazole 40 mg EC Tab PO ONE (11:20)
[2017-05-16 11:42] VITALS: PULSE 72
[2017-05-16 13:34] VITALS: BP 163/73; RESP 17; O2SAT 98
== END 2017-05-16 12:09 | disposition home or self-care (01) ==
LOC: C.ENDO 08:15
PROVIDERS: ATTEND Specialist
DX: R19.7 Diarrhea, unspecified (principal); K30 Functional dyspepsia; K58.9 Irritable bowel syndrome, unspecified; K44.9 Diaphragmatic hernia without obstruction or gangrene; K25.9 Gastric ulcer, unspecified as acute or chronic, without hemorrhage or perforation
CPT/HCPCS: 43239; 45380; 88305; J2704; J3010

== ENCOUNTER 2018-02-10 14:39 | Emergency (ER) | payer MEDICARE ==
[2018-02-10 14:40] VITALS: BMI 27.8
[2018-02-10] MEDS ORDERED: Sodium Chloride 0.9% 500 ML IV ONE (15:25)
[2018-02-10 15:48] LABS: BASO # 0.1 K/uL (0.0-0.2); BASO % 0.8 % (0.0-2.0); EOS % 0.4 % (0.0-4.0); HEMOGLOBIN 12.8 g/dL (11.0-16.0); LYMPH # 1.7 K/uL (1.0-4.3); LYMPH % 14.3 % (20.0-40.0); MEAN CORPUSCULAR HEMOGLOBIN 31.5 pg (27.0-31.0); MEAN CORPUSCULAR HGB CONC 32.9 g/dL (33.0-37.0); MEAN PLATELET VOLUME 7.5 fL (7.2-11.7); MONO # 0.8 K/uL (0.0-0.8); MONO % 7.3 % (0.0-10.0); NEUT # 8.9 K/uL (1.8-7.0); NEUT % 77.2 % (50.0-75.0); RBC 4.05 Mil/uL (3.80-5.20); RED CELL DISTRIBUTION WIDTH 12.6 % (11.5-14.5)
[2018-02-10 15:50] LABS: MEAN CELL VOLUME 95.7 fL (81.0-99.0); WHITE BLOOD COUNT 11.5 K/uL (4.8-10.8)
[2018-02-10 16:00] LABS: ALB/GLOB RATIO 1.6 (1.0-2.1); ALBUMIN 4.4 g/dL (3.5-5.0); ALT/SGPT 21 U/L (9-52); AST/SGOT 25 U/L (14-36); BLOOD UREA NITROGEN 23 mg/dL (7-17); CALCIUM 9.3 mg/dl (8.6-10.4); GFR AFRICAN-AMERICAN > 60; GFR NON-AFRICAN AMERICAN > 60; PROTHROMBIN TIME 10.9 SECONDS (9.7-12.2)
[2018-02-10 16:12] LABS: CK-MB 1.56 ng/mL (0.0-3.38)
--- NOTE | 2018-02-10 16:47 | RAD ---
PROCEDURE: CHEST RADIOGRAPH, 1 VIEW HISTORY: near syncope COMPARISON: Comparison made with prior chest radiograph 04/21/2017 the the theNone available. FINDINGS: LUNGS: Clear. PLEURA: No pneumothorax or pleural fluid seen. CARDIOVASCULAR: Normal. OSSEOUS STRUCTURES: No significant abnormalities. VISUALIZED UPPER ABDOMEN: Normal. OTHER FINDINGS: None. IMPRESSION: No active disease.
--- NOTE | 2018-02-10 17:03 | CT ---
PROCEDURE: CT HEAD WITHOUT CONTRAST. HISTORY: near syncope, dizziness COMPARISON: Comparison made with CT scan brain 05/26/2016 TECHNIQUE: Axial computed tomography images were obtained through the head/brain without intravenous contrast. Radiation dose: Total exam DLP = 713.66 mGy-cm. This CT exam was performed using one or more of the following dose reduction techniques: Automated exposure control, adjustment of the mA and/or kV according to patient size, and/or use of iterative reconstruction technique. FINDINGS: HEMORRHAGE: No acute parenchymal, subarachnoid or extra-axial hemorrhage. BRAIN: Mild chronic periventricular white matter ischemic changes seen extending peripherally into the deep and to a lesser degree subcortical white matter both cerebral hemispheres. Note that the possibility of a small hyperacute infarct cannot be completely excluded on this exam. Moderate generalized volume loss. Minor vascular calcifications both carotid siphons. VENTRICLES: Unremarkable. No hydrocephalus. CALVARIUM: Unremarkable. PARANASAL SINUSES: Unremarkable as visualized. No significant inflammatory changes. MASTOID AIR CELLS: Unremarkable as visualized. No inflammatory changes. OTHER FINDINGS: None. IMPRESSION: No acute intracranial hemorrhage. Mild chronic white matter ischemic changes.
--- NOTE | 2018-02-10 17:36 | C.PDOC ---
History Of Present Illness 82 year old female presents to the ER complaining of generalized weakness, nausea and light headedness since this afternoon around 1330. Patient denies any chest pain, shortness of breath, cough, fever, abdominal pain, vomiting, diarrhea, dysuria. Patient has no other physical complaints. Time Seen by Provider: 02/10/18 14:44 Chief Complaint (Nursing): Weakness/Neurological Deficit History Per: Patient History/Exam Limitations: no limitations Onset/Duration Of Symptoms: Hrs Current Symptoms Are (Timing): Still Present Past Medical History Reviewed: Historical Data, Nursing Documentation, Vital Signs Vital Signs: Last Vital Signs Temp 97.9 F 02/10/18 18:49 Pulse 66 02/10/18 18:49 Resp 18 02/10/18 18:49 BP 128/79 02/10/18 18:49 Pulse Ox 98 02/10/18 18:49 - Medical History PMH: Arthritis, Asthma, Back Problems, HTN, Hypercholesterolemia, Peripheral Edema Surgical History: Endoscopy - [facility] Procedures CLOSED ENDOSCOPIC BIOPSY OF LARGE INTESTINE (10/17/13) ENDOSC POLYPECTOMY OF LG INTEST (12/20/12) ESOPHAGOGASTRODUODENOSCOPY [EGD] W/CLOSED BIOPSY (10/17/13) PHYSICAL THERAPY NEC (05/04/15) Family History: States: No Known Family Hx - Social History Hx Tobacco Use: No Hx Alcohol Use: No Hx Substance Use: No - Immunization History Hx Tetanus Toxoid Vaccination: No Hx Influenza Vaccination: No Hx Pneumococcal Vaccination: No Review Of Systems Constitutional: Positive for: Weakness. Negative for: Fever Cardiovascular: Positive for: Light Headedness. Negative for: Chest Pain, Palpitations Respiratory: Negative for: Cough, Shortness of Breath Gastrointestinal: Positive for: Nausea. Negative for: Vomiting, Abdominal Pain , Diarrhea Genitourinary: Negative for: Dysuria, Hematuria Skin: Negative for: Rash Neurological: Positive for: Dizziness. Negative for: Weakness, Numbness, Headache Physical Exam - Physical Exam Appears: Well, Non-toxic, No Acute Distress Skin: Normal Color, Warm, Dry Head: Atraumatic, Normacephalic Eye(s): bilateral: Normal Inspection, PERRL, EOMI Oral Mucosa: Moist Neck: Supple Cardiovascular: Rhythm Regular Respiratory: Normal Breath Sounds, No Rales, No Rhonchi, No Wheezing Gastrointestinal/Abdominal: Normal Exam, Bowel Sounds, Soft, No Tenderness Extremity: Normal ROM, No Pedal Edema, No Calf Tenderness Pulses: Left Dorsalis Pedis: Normal, Right Dorsalis Pedis: Normal Neurological/Psych: Oriented x3, Normal Speech, Normal Cognition Gait: Steady ED Course And Treatment - Laboratory Results Result Diagrams: 02/10/18 15:42 02/10/18 15:42 ECG: Interpreted By Me, Viewed By Me (NSR 61 bpm, left axis deviation, RBBB, no acute ST/T wave changes) ECG Interpretation: No Acute Changes O2 Sat by Pulse Oximetry: 97 (RA) Pulse Ox Interpretation: Normal - Other Rad CXR X-Ray: Viewed By Me, Read By Radiologist Interpretation: Accession No. : [id number]. Patient Name / ID : ALHAJI WIGGINS / [id number]. Exam Date : 02/10/2018 15:28:51 ( Approved ). Study Comment : Sex / Age : F / 82Y. Creator : Gunnar Sawyer MD. Dictator : Television Repairer : Precast Worker : Gunnar Sawyer MD. Approver2 : Report Date : 02/10/2018 16:46:22. My Comment : . PROCEDURE: CHEST RADIOGRAPH, 1 VIEW. HISTORY: near syncope. COMPARISON: Comparison made with prior chest radiograph 04/21/2017 the the theNone available. FINDINGS: LUNGS: Clear. PLEURA: No pneumothorax or pleural fluid seen. CARDIOVASCULAR: Normal. OSSEOUS STRUCTURES: No significant abnormalities. VISUALIZED UPPER ABDOMEN: Normal. OTHER FINDINGS: None. IMPRESSION: No active disease. - CT Scan/US CT HEAD Other Rad Studies (CT/US): Read By Radiologist, Radiology Report Reviewed CT/US Interpretation: Accession No. : [id number]. Patient Name / ID : ALHAJI WIGGINS / [id number]. Exam Date : 02/10/2018 16:06:31 ( Approved ). Study Comment : Sex / Age : F / 82Y. Creator : jacinto ladd. Dictator : Television Repairer : Precast Worker : Gunnar Sawyer MD. Approver2 : Report Date : 02/10/2018 16:10:07. My Comment : . PROCEDURE: CT HEAD WITHOUT CONTRAST. HISTORY: near syncope, dizziness. COMPARISON: Comparison made with CT scan brain 05/26/2016. TECHNIQUE: Axial computed tomography images were obtained through the head/brain without intravenous contrast. Radiation dose: Total exam DLP = 713.66 mGy-cm. This CT exam was performed using one or more of the following dose reduction techniques: Automated exposure control, adjustment of the mA and/or kV according to patient size, and/ or use of iterative reconstruction technique. FINDINGS: HEMORRHAGE: No acute parenchymal, subarachnoid or extra-axial hemorrhage. BRAIN: Mild chronic periventricular white matter ischemic changes seen extending peripherally into the deep and to a lesser degree subcortical white matter both cerebral hemispheres. Note that the possibility of a small hyperacute infarct cannot be completely excluded on this exam. Moderate generalized volume loss. Minor vascular calcifications both carotid siphons. VENTRICLES: Unremarkable. No hydrocephalus. CALVARIUM: Unremarkable. PARANASAL SINUSES: Unremarkable as visualized. No significant inflammatory changes. MASTOID AIR CELLS: Unremarkable as visualized. No inflammatory changes. OTHER FINDINGS: None. IMPRESSION: No acute intracranial hemorrhage. Mild chronic white matter ischemic changes. Progress Note: Blood work, UA, EKG, CXR, CT head ordered and reviewed. Patient given IV NS bolus. Reevaluation Time: 18:35 Reassessment Condition: Improved (On reassessment, patient is resting comfortably and states she feels better. She is able to ambulate normally in the ED. Blood work, UA, CXR, CT head and EKG without acute findings. Patient is comfortable being discharged home, was instructed to follow up with PMD in 1- 2 days, and understands she should return to ED if symptoms worsen.) Disposition Counseled Patient/Family Regarding: Studies Performed, Diagnosis, Need For Followup - Disposition Referrals: [facility] [Outside] Disposition: HOME/ ROUTINE Disposition Time: 18:35 Condition: STABLE Additional Instructions: FOLLOW UP WITH YOUR DOCTOR IN 1-2 DAYS RETURN TO ER IF SYMPTOMS WORSEN Instructions: Weakness (ED) Forms: [facility] (Kyrgyz), General Discharge Instructions Print Language: ESTONIAN - POA Present On Arrival: None - Clinical Impression Clinical Impression: Nausea, Generalized weakness - Scribe Statement The provider has reviewed the documentation as recorded by the Scribemily Campbell All medical record entries made by the Anirudh were at my direction and personally dictated by me. I have reviewed the chart and agree that the record accurately reflects my personal performance of the history, physical exam, medical decision making, and the department course for this patient. I have also personally directed, reviewed, and agree with the discharge instructions and disposition.
[2018-02-10 18:25] LABS: SQUAMOUS EPITHIAL 1 /hpf (0-5); URINE BILIRUBIN NEGATIVE (NEGATIVE); URINE BLOOD NEGATIVE (NEGATIVE); URINE CLARITY Clear (Clear); URINE COLOR Yellow (YELLOW); URINE GLUCOSE (UA) NORMAL (Normal); URINE LEUKOCYTE ESTERASE NEG Leu/uL (Negative); URINE PROTEIN NEGATIVE (NEGATIVE); URINE UROBILINOGEN NORMAL mg/dL (0.2-1.0)
[2018-02-10 18:50] VITALS: BP 128/79; PULSE 66; RESP 18; TEMP 97.9
[2018-02-14 07:34] VITALS: O2SAT 97
== END 2018-02-10 18:50 | disposition home or self-care (01) ==
LOC: C.ER 14:39
DX: R11.0 Nausea (principal); I10 Essential (primary) hypertension; E78.00 Pure hypercholesterolemia, unspecified; Z87.891 Personal history of nicotine dependence

== ENCOUNTER 2018-08-28 08:17 | Day surgery (SDC) | payer MEDICARE ==
[2018-08-28] MEDS ORDERED: Propofol 10 mg/ml Inj (20 ML) ONE (12:40)
[2018-08-28] MEDS ORDERED: Lactated Ringer's 1,000 ML IV ONE (12:44)
--- NOTE | 2018-08-28 12:45 | CP.SDSHP ---
Same Day Surgery H & P - History Proposed Procedure: egd Pre-Op Diagnosis: SEE NOTES - Previous Medical/Surgical History Cardiac: Hypertension Pulmonary: Asthma Neuro: Backaches Pain: 4.Moderate Pain - Allergies Allergies: Allergies No Known Allergies Allergy (Verified 08/28/18 09:12) - Physical Exam General Appearance: N Vital Signs: Vital Signs 08/28/18 09:14 Temperature 97.8 F Pulse Rate 61 Respiratory 19 Rate Blood Pressure 130/55 L O2 Sat by Pulse 100 Oximetry Mental Status: Alert & Oriented x3 Neuro: WNL Heart: Other Lungs: Other GI: Other - {Optional Preform as Required} Breast: WNL Abdomen: Other Rectal: Other Integument: WNL : WNL Ortho: Other ENT: WNL - Impression Pt. Evaluated Today:Candidate for Anesthesia & Procedure: Yes - Date & Time Time: 12:45 Short Stay Discharge - Short Stay Discharge Admitting Diagnosis/Reason for Visit: GASTRIC ULCER / DYSPEPSIA Disposition: HOME/ ROUTINE
[2018-08-28] MEDS ORDERED: Belladonna-Phenobarbital PO STA (12:46)
[2018-08-28 13:07] VITALS: TEMP 97.7
[2018-08-28 13:18] VITALS: O2SAT 100
[2018-08-28 13:48] VITALS: BP 142/68; PULSE 57; RESP 14
== END 2018-08-28 13:47 | disposition home or self-care (01) ==
LOC: C.ENDO 08:17
PROVIDERS: ATTEND Specialist
DX: K29.50 Unspecified chronic gastritis without bleeding (principal); B96.81 Helicobacter pylori [H. pylori] as the cause of diseases classified elsewhere; K21.0 Gastro-esophageal reflux disease with esophagitis; K30 Functional dyspepsia; I10 Essential (primary) hypertension; J45.909 Unspecified asthma, uncomplicated; E78.5 Hyperlipidemia, unspecified; G62.9 Polyneuropathy, unspecified
CPT/HCPCS: 43239; 88305; 88342; J2001; J2704; J7120

== ENCOUNTER 2018-11-07 12:23 | Outpatient (CLI) | payer MEDICARE | END 2018-11-07 12:24 | disposition home or self-care (01) | LOC: C.USIC 12:24 | DX: N18.2 Chronic kidney disease, stage 2 (mild) (principal) ==